=== PATIENT | female | born 1930 | race Caucasian/White ===

== ENCOUNTER 2018-08-25 10:16 | Emergency (ER) | payer MEDICARE, OTHER ==
--- NOTE | 2018-08-25 11:26 | EDM.PDOC ---
ED HPI GENERAL MEDICAL PROBLEM - General Chief Complaint: Head Injury Stated Complaint: FALL-FACIAL INJURIES Time Seen by Provider: 08/25/18 11:08 Source of Information: Reports: Patient History Limitations: Reports: No Limitations - History of Present Illness INITIAL COMMENTS - FREE TEXT/NARRATIVE: 87-year-old female presents the ED complaining of right-sided facial swelling, bruising, and tenderness. Patient was walking on linoleum and tripped causing herself to fall into a into a mallika basket hitting the right side of her face. There was no loss of consciousness. She was able to get up on her own accord. She has chronic neck and back discomfort. Nothing changed since recent fall. She takes aspirin 81 mg daily. No anticoagulants. She chronically has paresthesias to his fingers and toes with no new changes as of recent. Her gait is normal. She denies any shortness of breath, chest pain, vision changes, nausea vomiting, headache, abd pain, pain to extremities, or any additional complaint. - Related Data Allergies Allergy/AdvReac Type Severity Reaction Status Date / Time No Known Allergies Allergy Verified 08/25/18 10:34 Home Meds: Home Meds Ezetimibe 10 mg PO DAILY 08/25/18 [History] Fosinopril [Monopril] 20 mg PO DAILY 08/25/18 [History] Furosemide [Lasix] 20 mg PO DAILY 08/25/18 [History] Levothyroxine 112 mg PO DAILY 08/25/18 [History] Metoprolol Succinate [Toprol Xl] 50 mg PO DAILY 08/25/18 [History] Nystatin [Nystatin Crm] 1 applic TOP BID PRN 08/25/18 [History] Simvastatin 10 mg PO DAILY 08/25/18 [History] amLODIPine [Norvasc] 5 mg PO DAILY 08/25/18 [History] metFORMIN [Glucophage] 500 mg PO BID 08/25/18 [History] Past Medical History Cardiovascular History: Reports: Heart Failure, High Cholesterol, Hypertension 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: Endocrine/Metabolic History: Reports: Hypoparathyroidism - Past Surgical History HEENT Surgical History: Reports: Cataract Surgery Other HEENT Surgeries/Procedures: wears glasses Neurological Surgical History: Reports: Vertebroplasty Musculoskeletal Surgical History: Reports: Knee Replacement Social & Family History - Tobacco Use Smoking Status *Q: Never Smoker Second Hand Smoke Exposure: No - Caffeine Use Caffeine Use: Reports: Coffee, Soda - Recreational Drug Use Recreational Drug Use: No ED ROS GENERAL - Review of Systems Review Of Systems: ROS reveals no pertinent complaints other than HPI. ED EXAM, HEAD INJURY - Physical Exam Exam: See Below Exam Limited By: No Limitations General Appearance: Alert, WD/WN, No Apparent Distress Head: Facial Ecchymosis (Right orbit/cheek), Facial Swelling (Right orbit/cheek) , Sinus Tenderness (Right maxillary), Facial Tenderness (Right orbit/cheek), Raccoon Eyes (Right eye). No: Scalp Lacerations, Scalp Swelling, Scalp Abrasions, Scalp Ecchymosis, Scalp Hematoma, Scalp Tenderness, Active Bleeding, Facial Abrasions, Facial Lacerations Nexus Criteria: No: Posterior, Midline Cervical Tenderness, Evidence of Intoxication, Altered Level of Consciousness, Focal Neurological Deficit, Painful Distraction Injuries Eyes: Bilateral Eye: EOMI, Normal Inspection, Nystagmus (None noted), PERRL Ears: Normal External Exam, Normal Canal, Hearing Grossly Normal, Normal TMs Nose: Normal Inspection, Normal Mucousa, No Blood. No: Nasal Tenderness, Nasal Ecchymosis, Septal Deformity Throat/Mouth: Normal Inspection, Normal Lips, Normal Oropharynx, Normal Voice, No Airway Compromise Neck: Non-Tender, Full Range of Motion, Normal Alignment, Normal Inspection Respiratory: No Respiratory Distress, Lungs Clear, Normal Breath Sounds, No Accessory Muscle Use, Chest Non-Tender Cardiovascular: Normal Peripheral Pulses, Regular Rate, Rhythm, No Murmur GI/Abdominal Exam: Normal Bowel Sounds, Soft, Non-Tender, No Organomegaly, No Distention Back Exam: Normal Inspection, Full Range of Motion. No: Paraspinal Tenderness, Vertebral Tenderness Extremities: Normal Inspection, Normal Range of Motion, Non-Tender Neurologic: thermometer tester II-XII nml As Tested, No Motor/Sensory Deficits, Alert, Normal Mood/Affect, Oriented x 3, Other (No facial droop, slurred speech, tongue deviation. Finger to nose and rapid alternating movements are intact. No weakness discrepancies to the upper and lower extremities. Gait is normal.) Skin: Normal Color, Warm/Dry - [place] Coma Score Best Eye Response (Estuardo): (4) Open Spontaneously Best Verbal Response (Estuardo): (5) Oriented Best Motor Response (Estuardo): (6) Obeys Commands Course - Vital Signs Last Recorded V/S: Last Vital Signs Temp 97.1 F 08/25/18 10:34 Pulse 110 H 08/25/18 10:34 Resp 12 08/25/18 10:34 BP 133/93 H 08/25/18 10:34 Pulse Ox 99 08/25/18 10:34 - Re-Assessments/Exams Free Text/Narrative Re-Assessment/Exam: Will order CT of the head and maxillofacial bones. CT maxillofacial and sinus without contrast impression: Soft tissue swelling around the right orbit extending into the right cheek. No facial bone fractures noted. Head CT impression: Senescent change as described above. Nothing acute is identified on noncontrast head CT exam. Discussed results of CT with the patient. Return precautions discussed with the patient. Patient had no further questions or concerns. Discharge instructions as documented. Departure - Departure Time of Disposition: 12:41 Disposition: Home, Self-Care 01 Condition: Good Clinical Impression: Contusion of face Qualifiers: Encounter type: initial encounter Qualified Code(s): S00.83XA - Contusion of other part of head, initial encounter - Discharge Information Instructions: Facial or Scalp Contusion, Post-Concussion Syndrome, [id number] , Head Injury, Adult, [id number], Hematoma, [id number] Referrals: Ramon Aaron MD [Primary Care Provider] - Forms: ED Department Discharge Additional Instructions: Apply ice to affected area 3 times a day, 20 minutes in duration, do not apply ice directly on the skin. Bruising will resolve over the next couple weeks. May utilize Tylenol as needed for discomfort. I provided information on head injury and also postconcussion syndrome. I do not believe you have either but should be educated if any symptoms do develop that are concerning for this. Please return back to the ED if you develop any new or worsening symptoms.
--- NOTE | 2018-08-25 12:19 | CT ---
Head CT Technique: Multiple axial sections through the brain were obtained. Intravenous contrast was not utilized. Comparison: No previous intracranial imaging is available. Findings: Ventricles along with basal cisterns and sulci over the convexities are mildly prominent. Diminished density is noted within the periventricular and subcortical white matter which is compatible with small vessel ischemic demyelination change. Old lacunar infarcts are noted within the basal ganglia. No other abnormal parenchymal densities are seen. No evidence of intracranial hemorrhage. No midline shift or mass effect is seen. Atherosclerotic calcification is seen within the vertebral vessels as well as within the carotid siphon. Bone window settings were reviewed which shows no acute calvarial abnormality. Impression: 1. Senescent change as described above. 2. Nothing acute is identified on noncontrast head CT exam. Diagnostic code #1
--- NOTE | 2018-08-25 12:19 | CT ---
CT facial bones Technique: Multiple axial sections through the facial bones were obtained. Reconstructed coronal and sagittal images were reviewed. Findings: Paranasal sinuses are clear. No significant mucosal thickening or air-fluid levels are seen. No discrete facial bone fracture is appreciated. Soft tissue swelling is noted around the right orbit. Focal soft tissue swelling is also seen within the right cheek. Right and left globes are symmetric in size. No retrobulbar abnormality is seen. Impression: 1. Soft tissue swelling around the right orbit extending into the right cheek. 2. No facial bone fracture is noted. Diagnostic code #2
== END 2018-08-25 13:05 | disposition home or self-care (01) ==
LOC: JD.ED 10:16
DX: S00.83XA Contusion of other part of head, initial encounter (principal); I11.0 Hypertensive heart disease with heart failure; I50.9 Heart failure, unspecified; E78.00 Pure hypercholesterolemia, unspecified; E20.9 Hypoparathyroidism, unspecified; Z79.899 Other long term (current) drug therapy; W01.0XXA Fall on same level from slipping, tripping and stumbling without subsequent striking against object, initial encounter
CPT/HCPCS: 70450; 70450-26; 70486; 70486-26; 99282; 99283-25

== ENCOUNTER 2018-12-10 07:15 | Inpatient (IN) | payer MEDICARE, OTHER ==
[2018-12-10] MEDS ORDERED: Aspirin 81 MG Tab.Chew PO ONE (07:47)
--- NOTE | 2018-12-10 07:47 | EDM.PDOC ---
ED HPI GENERAL MEDICAL PROBLEM - General Chief Complaint: Chest Pain Stated Complaint: CHEST PAIN Time Seen by Provider: 12/10/18 07:27 - History of Present Illness INITIAL COMMENTS - FREE TEXT/NARRATIVE: 88-year-old female presents emergency room with chest pain early this morning. Patient awoke shortly after midnight with some chest discomfort as well as mostly substernal not associated with breathing difficulties she was not diaphoretic did not radiate to either arm. She did however, have an episode of dry heaves did not bring anything up. This seemed to have resolved however when she got to the emergency room she developed it again Patient has a history of congestive heart failure and uses Lasix if it is convenient for her. If she is busy she does not like to spend all day on the toilet. This discomfort did resolve on its own. She is pain-free at the time of presentation and at the time of my initial evaluation Chest Pain Score (Numeric/FACES): 3 - Related Data Allergies Allergy/AdvReac Type Severity Reaction Status Date / Time No Known Allergies Allergy Verified 12/10/18 07:24 Home Meds: Home Meds Ezetimibe 10 mg PO DAILY 08/25/18 [History] Fosinopril [Monopril] 20 mg PO DAILY 08/25/18 [History] Furosemide [Lasix] 20 mg PO DAILY PRN 08/25/18 [History] Levothyroxine 112 mcg PO DAILY 08/25/18 [History] Metoprolol Succinate [Toprol Xl] 50 mg PO DAILY 08/25/18 [History] Nystatin [Nystatin Crm] 1 applic TOP BID PRN 08/25/18 [History] Simvastatin 10 mg PO BEDTIME 08/25/18 [History] amLODIPine [Norvasc] 5 mg PO DAILY 08/25/18 [History] metFORMIN [Glucophage] 500 mg PO BID 08/25/18 [History] Nystatin [Nystatin Crm] 1 applic TOP ASDIRECTED 12/10/18 [History] Past Medical History Cardiovascular History: Reports: Heart Failure, High Cholesterol, Hypertension 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: Endocrine/Metabolic History: Reports: Hypoparathyroidism - Past Surgical History HEENT Surgical History: Reports: Cataract Surgery Other HEENT Surgeries/Procedures: wears glasses Neurological Surgical History: Reports: Vertebroplasty Musculoskeletal Surgical History: Reports: Knee Replacement Social & Family History - Caffeine Use Caffeine Use: Reports: Coffee, Soda ED ROS GENERAL - Review of Systems Review Of Systems: See Below Constitutional: Reports: No Symptoms HEENT: Reports: No Symptoms Respiratory: Reports: No Symptoms Cardiovascular: Reports: Chest Pain Endocrine: Reports: No Symptoms GI/Abdominal: Reports: No Symptoms : Reports: No Symptoms Musculoskeletal: Reports: No Symptoms Skin: Reports: No Symptoms Neurological: Reports: No Symptoms ED EXAM, GENERAL - Physical Exam Exam: See Below Exam Limited By: No Limitations General Appearance: Alert, No Apparent Distress Head: Atraumatic, Normocephalic Neck: Normal Inspection, Supple, Non-Tender, Full Range of Motion. No: Lymphadenopathy (L), Lymphadenopathy (R) Respiratory/Chest: No Respiratory Distress, Lungs Clear, Normal Breath Sounds GI/Abdominal: Normal Bowel Sounds, Soft, Non-Tender, Other (She is obese) Neurological: Alert, Oriented, Normal Cognition Skin Exam: Warm, Dry, Intact Lymphatic: No Adenopathy EKG INTERPRETATION Rhythm: A-Fib P-Wave: Absent QRS: LBBB ST-T: Other (No evidence of acute ischemia per [place] criteria) Comparison: NA - No Prior EKG (Cannot find a prior EKG however did find a Holter monitor that showed a narrow complex rhythm was dated back to 2005) EKG Interpretation Comments: Abnormal EKG left bundle branch block unknown onset atrial fibrillation appears to be new Course - Vital Signs Last Recorded V/S: Last Vital Signs Temp 36.6 C 12/10/18 07:15 Pulse 104 H 12/10/18 07:15 Resp 16 12/10/18 07:15 BP 142/94 H 12/10/18 07:15 Pulse Ox 94 L 12/10/18 07:15 - Orders/Labs/Meds Orders: Active Orders 24 hr Category Date Time Status EKG Documentation Completion [RC] STAT Care 12/10/18 07:51 Active Labs: Laboratory Tests 12/10/18 12/10/18 12/10/18 Range/Units 07:10 07:40 07:40 WBC 6.73 (3.98-10.04) K/mm3 RBC 4.52 (3.98-5.22) M/mm3 Hgb 13.1 (11.2-15.7) gm/L Hct 40.6 (34.1-44.9) % MCV 89.8 (79.4-94.8) fl MCH 29.0 (25.6-32.2) pg MCHC 32.3 (32.2-35.5) g/dl RDW Std Deviation 43.4 (36.4-46.3) fL Plt Count 109 L (182-369) K/mm3 MPV 11.0 (9.4-12.3) fl Neutrophils % (Manual) 88 H (40-60) % Band Neutrophils % 0 (0-10) % Lymphocytes % (Manual) 11 L (20-40) % Atypical Lymphs % 0 % Monocytes % (Manual) 1 L (2-10) % Eosinophils % (Manual) 0 L (0.7-5.8) % Basophils % (Manual) 0 L (0.1-1.2) Platelet Estimate Decreased Hypochromasia 1+ slight Anisocytosis 2+ moderate Microcytosis 1+ slight Macrocytosis 1+ slight RBC Morph Comment Not Reportable PT 10.3 (9.5-12.1) SECONDS INR 0.94 APTT 24 (24-31) SECONDS Sodium 139 (136-145) mEq/L Potassium 3.8 (3.5-5.1) mEq/L Chloride 101 (98-107) mEq/L Carbon Dioxide 29 (21-32) mEq/L Anion Gap 12.8 (5-15) BUN 17 (7-18) mg/dL Creatinine 0.9 (0.55-1.02) mg/dL Est Cr Clr Drug Dosing 33.52 mL/min Estimated GFR (MDRD) 59 (>60) mL/min BUN/Creatinine Ratio 18.9 H (14-18) Glucose 229 H (83-115) mg/dL Calcium 9.2 (8.5-10.1) mg/dL Total Bilirubin 0.5 (0.2-1.0) mg/dL AST 12 L (15-37) U/L ALT 22 (14-59) U/L Alkaline Phosphatase 65 (46-116) U/L Troponin I < 0.017 (0.00-0.056) ng/mL NT-Pro-B Natriuret Pep (0-450) pg/mL Total Protein 7.4 (6.4-8.2) g/dl Albumin 4.0 (3.4-5.0) g/dl Globulin 3.4 gm/dL Albumin/Globulin Ratio 1.2 (1-2) Urine Color (Yellow) Urine Appearance (Clear) Urine pH (5.0-8.0) Ur Specific [place] (1.005-1.030) Urine Protein (Negative) Urine Glucose (UA) (Negative) Urine Ketones (Negative) Urine Occult Blood (Negative) Urine Nitrite (Negative) Urine Bilirubin (Negative) Urine Urobilinogen (0.2-1.0) Ur Leukocyte Esterase (Negative) Urine RBC (0-5) /hpf Urine WBC (0-5) /hpf Ur Squamous Epith Cells (0-5) /hpf Urine Bacteria (FEW) /hpf Urine Mucus (FEW) /hpf 12/10/18 12/10/18 12/10/18 Range/Units 07:40 09:15 10:15 WBC (3.98-10.04) K/mm3 RBC (3.98-5.22) M/mm3 Hgb (11.2-15.7) gm/L Hct (34.1-44.9) % MCV (79.4-94.8) fl MCH (25.6-32.2) pg MCHC (32.2-35.5) g/dl RDW Std Deviation (36.4-46.3) fL Plt Count (182-369) K/mm3 MPV (9.4-12.3) fl Neutrophils % (Manual) (40-60) % Band Neutrophils % (0-10) % Lymphocytes % (Manual) (20-40) % Atypical Lymphs % % Monocytes % (Manual) (2-10) % Eosinophils % (Manual) (0.7-5.8) % Basophils % (Manual) (0.1-1.2) Platelet Estimate Hypochromasia Anisocytosis Microcytosis Macrocytosis RBC Morph Comment PT (9.5-12.1) SECONDS INR APTT (24-31) SECONDS Sodium (136-145) mEq/L Potassium (3.5-5.1) mEq/L Chloride (98-107) mEq/L Carbon Dioxide (21-32) mEq/L Anion Gap (5-15) BUN (7-18) mg/dL Creatinine (0.55-1.02) mg/dL Est Cr Clr Drug Dosing mL/min Estimated GFR (MDRD) (>60) mL/min BUN/Creatinine Ratio (14-18) Glucose (83-115) mg/dL Calcium (8.5-10.1) mg/dL Total Bilirubin (0.2-1.0) mg/dL AST (15-37) U/L ALT (14-59) U/L Alkaline Phosphatase (46-116) U/L Troponin I < 0.017 (0.00-0.056) ng/mL NT-Pro-B Natriuret Pep 1260 H (0-450) pg/mL Total Protein (6.4-8.2) g/dl Albumin (3.4-5.0) g/dl Globulin gm/dL Albumin/Globulin Ratio (1-2) Urine Color Yellow (Yellow) Urine Appearance Clear (Clear) Urine pH 6.5 (5.0-8.0) Ur Specific [place] 1.025 (1.005-1.030) Urine Protein 1+ H (Negative) Urine Glucose (UA) Negative (Negative) Urine Ketones Negative (Negative) Urine Occult Blood Trace-lysed H (Negative) Urine Nitrite Negative (Negative) Urine Bilirubin Negative (Negative) Urine Urobilinogen 0.2 (0.2-1.0) Ur Leukocyte Esterase Negative (Negative) Urine RBC 0-5 (0-5) /hpf Urine WBC 0-5 (0-5) /hpf Ur Squamous Epith Cells 10-20 H (0-5) /hpf Urine Bacteria Few (FEW) /hpf Urine Mucus Few (FEW) /hpf Meds: Medications Discontinued Medications Generic Name Dose Route Start Last Admin Trade Name Freq PRN Reason Stop Dose Admin Aspirin 324 mg 12/10/18 07:47 12/10/18 09:47 Aspirin PO 12/10/18 07:48 324 mg ONETIME ONE Administration Metoclopramide HCl 5 mg 12/10/18 08:59 12/10/18 09:02 Reglan IVPUSH 12/10/18 09:00 5 mg ONETIME ONE Administration Ondansetron HCl 4 mg 12/10/18 08:20 12/10/18 08:31 Zofran IVPUSH 12/10/18 08:21 4 mg ONETIME ONE Administration - Re-Assessments/Exams Free Text/Narrative Re-Assessment/Exam: 12/10/18 09:17 Laboratory evaluation nondiagnostic chest x-ray shows some cardiomegaly she has some mild vascular congestion on chest x-ray EKG shows atrial fibrillation with a left bundle branch block when this lump bundle branch block is started is unknown they don't have an EKG over at [place] on her she did have a Holter monitor that shows a narrow complex rhythm dating back to 2007. For her dry heaves here she received some Zofran this did not seem to help we just gave her 5 mg of Reglan. Departure - Departure Time of Disposition: 11:28 Disposition: Refer to Observation Clinical Impression: Chest pain, Atrial fibrillation, Heart failure, Nausea & vomiting Referrals: Ramon Aaron MD [Primary Care Provider] - Forms: ED Department Discharge - My Orders Last 24 Hours: My Active Orders 12/10/18 07:51 EKG Documentation Completion [RC] STAT - Assessment/Plan Last 24 Hours: My Active Orders 12/10/18 07:51 EKG Documentation Completion [RC] STAT
[2018-12-10] MEDS ORDERED: Ondansetron 4 MG/2 ML SDV IVPUSH ONE (08:20)
[2018-12-10] MEDS ORDERED: Metoclopramide 10 MG/2 ML SDV IVPUSH ONE (08:59)
--- NOTE | 2018-12-10 09:38 | CR ---
Chest: Portable view of the chest was obtained. Comparison: No prior chest x-ray. Heart size and mediastinum are normal. Lungs are clear. Bony structures are grossly intact. Impression: 1. Nothing acute is appreciated on portable chest x-ray. Diagnostic code #1
[2018-12-10] MEDS ORDERED: Acetaminophen 325 MG Tab PO PRN (14:45)
--- NOTE | 2018-12-10 14:51 | PCM.HP ---
H&P History of Present Illness - General Date of Service: 12/10/18 Admit Problem/Dx: Admission Diagnosis/Problem Admission Diagnosis/Problem Atrial fibrillation - History of Present Illness Initial Comments - Free Text/Narative: 88-year-old female with history of congestive heart failure, hypertension, hypothyroidism, and type 2 diabetes presents to the emergency room with epigastric pain since midnight. Patient woke up at midnight nauseated, had dry heaves, and then epigastric pain. When she woke up at 6:00 in the morning she continued to have the pain that worsened with breathing. She did come to the emergency room at that time where she did have an emesis of mucus around 9:00. Last night she did have deep fried chicken for dinner. She States the pain is 3 of 10, burning. She denies any dyspnea on exertion, orthopnea, PND, or worsening lower extremity edema. She does state that she likely has sleep apnea and patient was placed on O2 in the emergency room because of dropping oxygen saturations when sleeping. In the emergency room EKG showed atrial fibrillation and a left bundle branch block. Unknown when either of these started. She is on a beta laura keeping her rate controlled. Chest x-ray showed no acute findings. Labs: WBC 6.7, hemoglobin 13.1, platelets 109, INR 0.94, sodium 139, potassium 3.8, chloride 101, carbon dioxide 29, BUN 17, creatinine 0.9, glucose 229, BNP 1260 and a repeat was 1945, troponin less than 0.017 and repeat was the same. Negative UA for infection Chest Pain Score (Numeric/FACES): 3 - Related Data Allergies/Adverse Reactions: Allergies Allergy/AdvReac Type Severity Reaction Status Date / Time No Known Allergies Allergy Verified 12/10/18 14:15 Home Medications: Home Meds Ezetimibe 10 mg PO DAILY 08/25/18 [History] Fosinopril [Monopril] 20 mg PO DAILY 08/25/18 [History] Furosemide [Lasix] 20 mg PO DAILY PRN 08/25/18 [History] Levothyroxine 112 mcg PO DAILY 08/25/18 [History] Metoprolol Succinate [Toprol Xl] 50 mg PO DAILY 08/25/18 [History] Nystatin [Nystatin Crm] 1 applic TOP BID PRN 08/25/18 [History] Simvastatin 10 mg PO BEDTIME 08/25/18 [History] amLODIPine [Norvasc] 5 mg PO DAILY 08/25/18 [History] metFORMIN [Glucophage] 500 mg PO BID 08/25/18 [History] Past Medical History Cardiovascular History: Reports: Heart Failure, High Cholesterol, Hypertension Respiratory History: Reports: Asthma, Other (See Below) Other Respiratory History: was told has asthma but has not been Rx'd meds for asthma. 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 - Infectious Disease History Infectious Disease History: Reports: Shingles - Past Surgical History HEENT Surgical History: Reports: Cataract Surgery Other HEENT Surgeries/Procedures: wears glasses GI Surgical History: Reports: Colonoscopy Neurological Surgical History: Reports: Vertebroplasty Musculoskeletal Surgical History: Reports: Knee Replacement Social & Family History - Family History Family Medical History: Noncontributory - Tobacco Use Smoking Status *Q: Never Smoker Second Hand Smoke Exposure: No - Caffeine Use Caffeine Use: Reports: Coffee Other Caffeine Use: 1 cup/day - Recreational Drug Use Recreational Drug Use: No H&P Review of Systems - Review of Systems: Review Of Systems: ROS reveals no pertinent complaints other than HPI. Exam - Exam Exam: See Below - Vital Signs Vital Signs: Last Vital Signs Temp 98.4 F 12/10/18 13:09 Pulse 89 12/10/18 13:09 Resp 16 12/10/18 13:09 BP 157/98 H 12/10/18 13:09 Pulse Ox 95 12/10/18 13:09 Weight: 205 lb 8 oz - Exam Quality Assessment: Supplemental Oxygen General: Alert, Oriented, 4 HEENT: Conjunctiva Clear, EOMI, Hearing Intact, Mucosa Moist & [place], Nares Patent, Posterior Pharynx Clear Neck: Supple, Trachea Midline, 2 Lungs: Clear to Auscultation, Normal Respiratory Effort Cardiovascular: Regular Rate, Irregular Rhythm GI/Abdominal Exam: Normal Bowel Sounds, Soft, Non-Tender, No Organomegaly, No Distention, No Abnormal Bruit, No Mass, Pelvis Stable Extremities: Normal Inspection, Normal Range of Motion, Non-Tender, Normal Capillary Refill, Pedal Edema (2+ lower extremity pitting edema up to her knee) Skin: Warm, Dry, Intact Neurological: Cranial Nerves Intact, Reflexes Equal Bilateral Neuro Extensive - Mental Status: Alert, Oriented x3, Normal Mood/Affect, Normal Cognition Neuro Extensive - Motor, Sensory, Reflexes: CN II-XII Intact Psychiatric: Alert, Normal Affect, Normal Mood - Patient Data Lab Results Last 24 hrs: Laboratory Results - last 24 hr 12/10/18 12/10/18 12/10/18 Range/Units 07:10 07:40 07:40 WBC 6.73 (3.98-10.04) K/mm3 RBC 4.52 (3.98-5.22) M/mm3 Hgb 13.1 (11.2-15.7) gm/L Hct 40.6 (34.1-44.9) % MCV 89.8 (79.4-94.8) fl MCH 29.0 (25.6-32.2) pg MCHC 32.3 (32.2-35.5) g/dl RDW Std Deviation 43.4 (36.4-46.3) fL Plt Count 109 L (182-369) K/mm3 MPV 11.0 (9.4-12.3) fl Neutrophils % (Manual) 88 H (40-60) % Band Neutrophils % 0 (0-10) % Lymphocytes % (Manual) 11 L (20-40) % Atypical Lymphs % 0 % Monocytes % (Manual) 1 L (2-10) % Eosinophils % (Manual) 0 L (0.7-5.8) % Basophils % (Manual) 0 L (0.1-1.2) Platelet Estimate Decreased Hypochromasia 1+ slight Anisocytosis 2+ moderate Microcytosis 1+ slight Macrocytosis 1+ slight RBC Morph Comment Not Reportable PT 10.3 (9.5-12.1) SECONDS INR 0.94 APTT 24 (24-31) SECONDS Sodium 139 (136-145) mEq/L Potassium 3.8 (3.5-5.1) mEq/L Chloride 101 (98-107) mEq/L Carbon Dioxide 29 (21-32) mEq/L Anion Gap 12.8 (5-15) BUN 17 (7-18) mg/dL Creatinine 0.9 (0.55-1.02) mg/dL Est Cr Clr Drug Dosing 33.52 mL/min Estimated GFR (MDRD) 59 (>60) mL/min BUN/Creatinine Ratio 18.9 H (14-18) Glucose 229 H (83-115) mg/dL Calcium 9.2 (8.5-10.1) mg/dL Total Bilirubin 0.5 (0.2-1.0) mg/dL AST 12 L (15-37) U/L ALT 22 (14-59) U/L Alkaline Phosphatase 65 (46-116) U/L Troponin I < 0.017 (0.00-0.056) ng/mL NT-Pro-B Natriuret Pep (0-450) pg/mL Total Protein 7.4 (6.4-8.2) g/dl Albumin 4.0 (3.4-5.0) g/dl Globulin 3.4 gm/dL Albumin/Globulin Ratio 1.2 (1-2) Urine Color (Yellow) Urine Appearance (Clear) Urine pH (5.0-8.0) Ur Specific [place] (1.005-1.030) Urine Protein (Negative) Urine Glucose (UA) (Negative) Urine Ketones (Negative) Urine Occult Blood (Negative) Urine Nitrite (Negative) Urine Bilirubin (Negative) Urine Urobilinogen (0.2-1.0) Ur Leukocyte Esterase (Negative) Urine RBC (0-5) /hpf Urine WBC (0-5) /hpf Ur Squamous Epith Cells (0-5) /hpf Urine Bacteria (FEW) /hpf Urine Mucus (FEW) /hpf 12/10/18 12/10/18 12/10/18 Range/Units 07:40 09:15 10:15 WBC (3.98-10.04) K/mm3 RBC (3.98-5.22) M/mm3 Hgb (11.2-15.7) gm/L Hct (34.1-44.9) % MCV (79.4-94.8) fl MCH (25.6-32.2) pg MCHC (32.2-35.5) g/dl RDW Std Deviation (36.4-46.3) fL Plt Count (182-369) K/mm3 MPV (9.4-12.3) fl Neutrophils % (Manual) (40-60) % Band Neutrophils % (0-10) % Lymphocytes % (Manual) (20-40) % Atypical Lymphs % % Monocytes % (Manual) (2-10) % Eosinophils % (Manual) (0.7-5.8) % Basophils % (Manual) (0.1-1.2) Platelet Estimate Hypochromasia Anisocytosis Microcytosis Macrocytosis RBC Morph Comment PT (9.5-12.1) SECONDS INR APTT (24-31) SECONDS Sodium (136-145) mEq/L Potassium (3.5-5.1) mEq/L Chloride (98-107) mEq/L Carbon Dioxide (21-32) mEq/L Anion Gap (5-15) BUN (7-18) mg/dL Creatinine (0.55-1.02) mg/dL Est Cr Clr Drug Dosing mL/min Estimated GFR (MDRD) (>60) mL/min BUN/Creatinine Ratio (14-18) Glucose (83-115) mg/dL Calcium (8.5-10.1) mg/dL Total Bilirubin (0.2-1.0) mg/dL AST (15-37) U/L ALT (14-59) U/L Alkaline Phosphatase (46-116) U/L Troponin I < 0.017 (0.00-0.056) ng/mL NT-Pro-B Natriuret Pep 1260 H (0-450) pg/mL Total Protein (6.4-8.2) g/dl Albumin (3.4-5.0) g/dl Globulin gm/dL Albumin/Globulin Ratio (1-2) Urine Color Yellow (Yellow) Urine Appearance Clear (Clear) Urine pH 6.5 (5.0-8.0) Ur Specific [place] 1.025 (1.005-1.030) Urine Protein 1+ H (Negative) Urine Glucose (UA) Negative (Negative) Urine Ketones Negative (Negative) Urine Occult Blood Trace-lysed H (Negative) Urine Nitrite Negative (Negative) Urine Bilirubin Negative (Negative) Urine Urobilinogen 0.2 (0.2-1.0) Ur Leukocyte Esterase Negative (Negative) Urine RBC 0-5 (0-5) /hpf Urine WBC 0-5 (0-5) /hpf Ur Squamous Epith Cells 10-20 H (0-5) /hpf Urine Bacteria Few (FEW) /hpf Urine Mucus Few (FEW) /hpf Result Diagrams: 12/10/18 07:10 12/10/18 07:40 EKG INTERPRETATION EKG Date: 12/10/18 Rhythm: A-Fib Rate (Beats/Min): 93 [place]: LAD-Left [place] Deviation P-Wave: Absent QRS: LBBB - Problem List (1) Epigastric abdominal pain SNOMED Code(s): 87501076 ICD Code: R10.13 - EPIGASTRIC PAIN Status: Acute Current Visit: Yes (2) Atrial fibrillation SNOMED Code(s): 49052826 ICD Code: I48.91 - UNSPECIFIED ATRIAL FIBRILLATION Status: Acute Current Visit: Yes (3) Nausea & vomiting SNOMED Code(s): 26524983 ICD Code: R11.2 - NAUSEA WITH VOMITING, UNSPECIFIED Status: Acute Current Visit: Yes Problem List Initiated/Reviewed/Updated: Yes Orders Last 24hrs: Active Orders 24 hr Category Date Time Status Patient Status [ADT] Routine ADT 12/10/18 14:39 Active Oxygen Therapy [RC] PRN Care 12/10/18 14:45 Ordered Up ad Sharon [RC] ASDIRECTED Care 12/10/18 14:45 Ordered VTE/DVT Education [RC] PER UNIT ROUTINE Care 12/10/18 14:45 Ordered Vital Signs [RC] ASDIRECTED Care 12/10/18 14:45 Ordered Consult to Pulmonary Rehabilitation [CONS] Routine Cons 12/10/18 14:48 Ordered Heart Healthy Diet [DIET] Diet 12/10/18 Lunch Active Nothing Per Oral Diet [DIET] Diet 12/10/18 Breakfast Ordered CBC WITH AUTO DIFF [HEME] AM Lab 12/11/18 05:11 Ordered CBC WITH AUTO DIFF [HEME] AM Lab 12/12/18 05:11 Ordered CBC WITH AUTO DIFF [HEME] AM Lab 12/13/18 05:11 Ordered CBC WITH AUTO DIFF [HEME] AM Lab 12/14/18 05:11 Ordered CBC WITH AUTO DIFF [HEME] AM Lab 12/15/18 05:11 Ordered COMPREHENSIVE METABOLIC PN,CMP [CHEM] AM Lab 12/11/18 05:11 Ordered COMPREHENSIVE METABOLIC PN,CMP [CHEM] AM Lab 12/12/18 05:11 Ordered COMPREHENSIVE METABOLIC PN,CMP [CHEM] AM Lab 12/13/18 05:11 Ordered COMPREHENSIVE METABOLIC PN,CMP [CHEM] AM Lab 12/14/18 05:11 Ordered COMPREHENSIVE METABOLIC PN,CMP [CHEM] AM Lab 12/15/18 05:11 Ordered MAGNESIUM [CHEM] AM Lab 12/11/18 05:11 Ordered MAGNESIUM [CHEM] AM Lab 12/12/18 05:11 Ordered MAGNESIUM [CHEM] AM Lab 12/13/18 05:11 Ordered MAGNESIUM [CHEM] AM Lab 12/14/18 05:11 Ordered MAGNESIUM [CHEM] AM Lab 12/15/18 05:11 Ordered PRO B-TYPE NATRIUR PEPT,BNPPRO [CHEM] DAILY Lab 12/10/18 14:45 Ordered PRO B-TYPE NATRIUR PEPT,BNPPRO [CHEM] DAILY Lab 12/11/18 14:45 Ordered PRO B-TYPE NATRIUR PEPT,BNPPRO [CHEM] DAILY Lab 12/12/18 14:45 Ordered PRO B-TYPE NATRIUR PEPT,BNPPRO [CHEM] DAILY Lab 12/13/18 14:45 Ordered PRO B-TYPE NATRIUR PEPT,BNPPRO [CHEM] DAILY Lab 12/14/18 14:45 Ordered Acetaminophen [Tylenol] Med 12/10/18 14:45 Ordered 650 mg PO Q4H PRN Resuscitation Status Routine Resus Stat 12/10/18 14:45 Ordered EKG Stress NM Adenosine [EK] Routine Ther 12/10/18 14:45 Ordered Medication Orders Acetaminophen (Tylenol) 650 mg PO Q4H PRN PRN Reason: Pain (Mild 1-3)/fever Assessment/Plan Comment:: Assessment * 88-year-old female with type 2 diabetes with new onset atrial fibrillation. Rate controlled on metoprolol * congestive heart failure * Nausea and vomiting * Epigastric pain * negative troponins Plan * Admit to telemetry * Lexiscan - hold metoprolol for Lexiscan * Echocardiogram * [id number] score = 6, high risk for thromboembolic event. Yearly risk of stroke = 9.8% * Bleeding Risk in Atrial Fibrillation: HAS-BLED Score = 2, intermediate risk of bleeding. Estimated Rate of Major Bleeding with 1-year OAC = 1.88-3.2 * Lasix 20 mg IV now and Lasix 20 mg by mouth in the morning * Protonix 40 mg twice a day * Eliquis 2.5 mg bid secondary to age and bleeding risk. May consider increasing to 5 mg. * reconcile home meds * CBC, CMP, mag, and BNP in the morning * Prognosis is poor * VTE prophylaxis with Eliquis * CODE STATUS: DNR/DNI
[2018-12-10] MEDS ORDERED: Alum Hydrox/Mag Hydrox/Simeth 30 ML, Lidocaine 2% 15 ML PO ONE ×2 (16:42)
[2018-12-10] MEDS ORDERED: Furosemide 20 MG/2 ML VIAL IVPUSH ONE (16:56)
[2018-12-10] MEDS: Pantoprazole 40 MG Tab.CR PO SCH (17:44)
[2018-12-10] MEDS: Insulin Lispro 100 Units/ML 3 ML Vial SUBCUT SCH ×2 (18:10→21:08)
[2018-12-10] MEDS: Simvastatin 10 MG Tab PO SCH (20:02)
[2018-12-11] MEDS: Levothyroxine 112 MCG Tab PO SCH (06:08)
[2018-12-11] MEDS: Pantoprazole 40 MG Tab.CR PO SCH ×2 (06:08→15:22)
[2018-12-11] MEDS: Insulin Lispro 100 Units/ML 3 ML Vial SUBCUT SCH ×4 (06:15→21:29)
[2018-12-11] MEDS ORDERED: Furosemide 20 MG Tab PO SCH (09:00)
--- NOTE | 2018-12-11 09:45 | PCM.PN ---
- General Info Date of Service: 12/11/18 Admission Dx/Problem (Free Text): Admission Diagnosis/Problem Admission Diagnosis/Problem Atrial fibrillation Subjective Update: No significant overnight or acute issues. She is now chest pain free. Her troponin was negative with no acute ischemic changes on her repeat EKG. Her nuclear stress test is pending. Functional Status: Reports: Ambulating, Urinating. Denies: Pain Controlled, Tolerating Diet - Review of Systems General: Denies: Fever, Chills HEENT: Denies: No Symptoms Pulmonary: Denies: Shortness of Breath Cardiovascular: Denies: Chest Pain, Dyspnea on Exertion, Lightheadedness Gastrointestinal: Denies: Abdominal Pain, Nausea, Vomiting Genitourinary: Reports: No Symptoms Musculoskeletal: Reports: No Symptoms Skin: Denies: Cyanosis, Bruising Neurological: Reports: Difficulty Walking, Gait Disturbance. Denies: Confusion , Dizziness, Weakness Psychiatric: Denies: Depression, Anxiety, Agitation, Hallucinations - Patient Data Vitals - Most Recent: Last Vital Signs Temp 37.9 C 12/11/18 09:08 Pulse 119 H 12/11/18 09:08 Resp 20 12/11/18 09:08 BP 160/93 H 12/11/18 09:08 Pulse Ox 86 L 12/11/18 09:08 Weight - Most Recent: 90.582 kg I&O - Last 24 Hours: Intake & Output 12/10/18 12/11/18 12/11/18 22:59 06:59 14:59 Intake Total 720 500 Output Total 1350 Balance 720 -850 Lab Results Last 24 Hours: Laboratory Results - last 24 hr 12/10/18 12/10/18 12/10/18 Range/Units 09:15 10:15 15:20 WBC (3.98-10.04) K/mm3 RBC (3.98-5.22) M/mm3 Hgb (11.2-15.7) gm/L Hct (34.1-44.9) % MCV (79.4-94.8) fl MCH (25.6-32.2) pg MCHC (32.2-35.5) g/dl RDW Std Deviation (36.4-46.3) fL Plt Count (182-369) K/mm3 MPV (9.4-12.3) fl Neut % (Auto) (34.0-71.1) % Lymph % (Auto) (19.3-51.7) % [place] % (Auto) (4.7-12.5) % Eos % (Auto) (0.7-5.8) Baso % (Auto) (0.1-1.2) % Neut # (Auto) (1.56-6.13) K/mm3 Lymph # (Auto) (1.18-3.74) K/mm3 [place] # (Auto) (0.24-0.36) K/mm3 Eos # (Auto) (0.04-0.36) K/mm3 Baso # (Auto) (0.01-0.08) K/mm3 Manual Slide Review Sodium (136-145) mEq/L Potassium (3.5-5.1) mEq/L Chloride (98-107) mEq/L Carbon Dioxide (21-32) mEq/L Anion Gap (5-15) BUN (7-18) mg/dL Creatinine (0.55-1.02) mg/dL Est Cr Clr Drug Dosing mL/min Estimated GFR (MDRD) (>60) mL/min BUN/Creatinine Ratio (14-18) Glucose (83-115) mg/dL POC Glucose (83-110) mg/dL Calcium (8.5-10.1) mg/dL Magnesium (1.8-2.4) mg/dl Total Bilirubin (0.2-1.0) mg/dL AST (15-37) U/L ALT (14-59) U/L Alkaline Phosphatase (46-116) U/L Troponin I < 0.017 (0.00-0.056) ng/mL NT-Pro-B Natriuret Pep 1945 H (0-450) pg/mL Total Protein (6.4-8.2) g/dl Albumin (3.4-5.0) g/dl Globulin gm/dL Albumin/Globulin Ratio (1-2) Triglycerides (<150) mg/dL Cholesterol (<200) mg/dL LDL Cholesterol Direct (<100) mg/dL HDL Cholesterol (40-59) mg/dL TSH 3rd Generation (0.358-3.74) uIU/mL Urine Color Yellow (Yellow) Urine Appearance Clear (Clear) Urine pH 6.5 (5.0-8.0) Ur Specific [place] 1.025 (1.005-1.030) Urine Protein 1+ H (Negative) Urine Glucose (UA) Negative (Negative) Urine Ketones Negative (Negative) Urine Occult Blood Trace-lysed H (Negative) Urine Nitrite Negative (Negative) Urine Bilirubin Negative (Negative) Urine Urobilinogen 0.2 (0.2-1.0) Ur Leukocyte Esterase Negative (Negative) Urine RBC 0-5 (0-5) /hpf Urine WBC 0-5 (0-5) /hpf Ur Squamous Epith Cells 10-20 H (0-5) /hpf Urine Bacteria Few (FEW) /hpf Urine Mucus Few (FEW) /hpf 12/10/18 12/10/18 12/11/18 Range/Units 17:42 20:48 05:10 WBC 9.86 (3.98-10.04) K/mm3 RBC 4.54 (3.98-5.22) M/mm3 Hgb 13.1 (11.2-15.7) gm/L Hct 40.4 (34.1-44.9) % MCV 89.0 (79.4-94.8) fl MCH 28.9 (25.6-32.2) pg MCHC 32.4 (32.2-35.5) g/dl RDW Std Deviation 42.0 (36.4-46.3) fL Plt Count 107 L (182-369) K/mm3 MPV 11.3 (9.4-12.3) fl Neut % (Auto) 84.7 H (34.0-71.1) % Lymph % (Auto) 6.7 L (19.3-51.7) % [place] % (Auto) 7.9 (4.7-12.5) % Eos % (Auto) 0.3 L (0.7-5.8) Baso % (Auto) 0.1 (0.1-1.2) % Neut # (Auto) 8.35 H (1.56-6.13) K/mm3 Lymph # (Auto) 0.66 L (1.18-3.74) K/mm3 [place] # (Auto) 0.78 H (0.24-0.36) K/mm3 Eos # (Auto) 0.03 L (0.04-0.36) K/mm3 Baso # (Auto) 0.01 (0.01-0.08) K/mm3 Manual Slide Review Abnormal smear Sodium (136-145) mEq/L Potassium (3.5-5.1) mEq/L Chloride (98-107) mEq/L Carbon Dioxide (21-32) mEq/L Anion Gap (5-15) BUN (7-18) mg/dL Creatinine (0.55-1.02) mg/dL Est Cr Clr Drug Dosing mL/min Estimated GFR (MDRD) (>60) mL/min BUN/Creatinine Ratio (14-18) Glucose (83-115) mg/dL POC Glucose 192 H 196 H (83-110) mg/dL Calcium (8.5-10.1) mg/dL Magnesium (1.8-2.4) mg/dl Total Bilirubin (0.2-1.0) mg/dL AST (15-37) U/L ALT (14-59) U/L Alkaline Phosphatase (46-116) U/L Troponin I (0.00-0.056) ng/mL NT-Pro-B Natriuret Pep (0-450) pg/mL Total Protein (6.4-8.2) g/dl Albumin (3.4-5.0) g/dl Globulin gm/dL Albumin/Globulin Ratio (1-2) Triglycerides (<150) mg/dL Cholesterol (<200) mg/dL LDL Cholesterol Direct (<100) mg/dL HDL Cholesterol (40-59) mg/dL TSH 3rd Generation (0.358-3.74) uIU/mL Urine Color (Yellow) Urine Appearance (Clear) Urine pH (5.0-8.0) Ur Specific [place] (1.005-1.030) Urine Protein (Negative) Urine Glucose (UA) (Negative) Urine Ketones (Negative) Urine Occult Blood (Negative) Urine Nitrite (Negative) Urine Bilirubin (Negative) Urine Urobilinogen (0.2-1.0) Ur Leukocyte Esterase (Negative) Urine RBC (0-5) /hpf Urine WBC (0-5) /hpf Ur Squamous Epith Cells (0-5) /hpf Urine Bacteria (FEW) /hpf Urine Mucus (FEW) /hpf 12/11/18 12/11/18 Range/Units 05:10 06:07 WBC (3.98-10.04) K/mm3 RBC (3.98-5.22) M/mm3 Hgb (11.2-15.7) gm/L Hct (34.1-44.9) % MCV (79.4-94.8) fl MCH (25.6-32.2) pg MCHC (32.2-35.5) g/dl RDW Std Deviation (36.4-46.3) fL Plt Count (182-369) K/mm3 MPV (9.4-12.3) fl Neut % (Auto) (34.0-71.1) % Lymph % (Auto) (19.3-51.7) % [place] % (Auto) (4.7-12.5) % Eos % (Auto) (0.7-5.8) Baso % (Auto) (0.1-1.2) % Neut # (Auto) (1.56-6.13) K/mm3 Lymph # (Auto) (1.18-3.74) K/mm3 [place] # (Auto) (0.24-0.36) K/mm3 Eos # (Auto) (0.04-0.36) K/mm3 Baso # (Auto) (0.01-0.08) K/mm3 Manual Slide Review Sodium 134 L (136-145) mEq/L Potassium 3.5 (3.5-5.1) mEq/L Chloride 95 L (98-107) mEq/L Carbon Dioxide 29 (21-32) mEq/L Anion Gap 13.5 (5-15) BUN 11 (7-18) mg/dL Creatinine 0.8 (0.55-1.02) mg/dL Est Cr Clr Drug Dosing 37.71 mL/min Estimated GFR (MDRD) > 60 (>60) mL/min BUN/Creatinine Ratio 13.8 L (14-18) Glucose 216 H (83-115) mg/dL POC Glucose 203 H (83-110) mg/dL Calcium 9.1 (8.5-10.1) mg/dL Magnesium 1.6 L (1.8-2.4) mg/dl Total Bilirubin 1.0 (0.2-1.0) mg/dL AST 15 (15-37) U/L ALT 19 (14-59) U/L Alkaline Phosphatase 59 (46-116) U/L Troponin I < 0.017 (0.00-0.056) ng/mL NT-Pro-B Natriuret Pep (0-450) pg/mL Total Protein 7.7 (6.4-8.2) g/dl Albumin 3.7 (3.4-5.0) g/dl Globulin 4.0 gm/dL Albumin/Globulin Ratio 0.9 L (1-2) Triglycerides 68 (<150) mg/dL Cholesterol 109 (<200) mg/dL LDL Cholesterol Direct 53 (<100) mg/dL HDL Cholesterol 47.0 (40-59) mg/dL TSH 3rd Generation 1.001 (0.358-3.74) uIU/mL Urine Color (Yellow) Urine Appearance (Clear) Urine pH (5.0-8.0) Ur Specific [place] (1.005-1.030) Urine Protein (Negative) Urine Glucose (UA) (Negative) Urine Ketones (Negative) Urine Occult Blood (Negative) Urine Nitrite (Negative) Urine Bilirubin (Negative) Urine Urobilinogen (0.2-1.0) Ur Leukocyte Esterase (Negative) Urine RBC (0-5) /hpf Urine WBC (0-5) /hpf Ur Squamous Epith Cells (0-5) /hpf Urine Bacteria (FEW) /hpf Urine Mucus (FEW) /hpf Med Orders - Current: Current Medications Acetaminophen (Tylenol) 650 mg PO Q4H PRN PRN Reason: Pain (Mild 1-3)/fever Amlodipine Besylate (Norvasc) 5 mg PO DAILY [facility] Apixaban (Eliquis) 2.5 mg PO BID [facility] Ezetimibe (Zetia) 10 mg PO DAILY [facility] Furosemide (Lasix) 20 mg PO DAILY [facility] Insulin Human Lispro (Humalog) 0 unit SUBCUT QIDACANDBED [facility]; Protocol Last Admin: 12/11/18 06:15 Dose: 2 unit Levothyroxine Sodium (Levothyroxine) 112 mcg PO ACBREAKFAST [facility] Last Admin: 12/11/18 06:08 Dose: 112 mcg Lisinopril (Prinivil) 10 mg PO DAILY [facility] Metoprolol Succinate (Toprol Xl) 50 mg PO DAILY [facility] Pantoprazole Sodium (Protonix) 40 mg PO BIDAC [facility] Last Admin: 12/11/18 06:08 Dose: 40 mg Simvastatin (Zocor) 10 mg PO BEDTIME [facility] Last Admin: 12/10/18 20:02 Dose: 10 mg Discontinued Medications Aspirin (Aspirin) 324 mg PO ONETIME ONE Stop: 12/10/18 07:48 Last Admin: 12/10/18 09:47 Dose: 324 mg Al Hydroxide/Mg Hydroxide 30 (ml/ Lidocaine HCl 15 ml) 0 ml PO ONETIME ONE Stop: 12/10/18 16:43 Last Admin: 12/10/18 17:43 Dose: 45 ml Furosemide (Lasix) 20 mg IVPUSH ONETIME ONE Stop: 12/10/18 16:57 Last Admin: 12/10/18 17:45 Dose: 20 mg Metoclopramide HCl (Reglan) 5 mg IVPUSH ONETIME ONE Stop: 12/10/18 09:00 Last Admin: 12/10/18 09:02 Dose: 5 mg Ondansetron HCl (Zofran) 4 mg IVPUSH ONETIME ONE Stop: 12/10/18 08:21 Last Admin: 12/10/18 08:31 Dose: 4 mg Regadenoson (Lexiscan) 0.4 mg IVPUSH ONETIME ONE Stop: 12/11/18 06:56 Last Admin: 12/11/18 07:44 Dose: 0.4 mg - Exam Quality Assessment: Supplemental Oxygen General: Alert, Cooperative, No Acute Distress HEENT: Pupils Equal, Pupils Reactive, EOMI, Mucous Membr. Moist/[place]: Supple Lungs: Decreased Breath Sounds, Crackles Cardiovascular: Irregular Rhythm GI/Abdominal Exam: Normal Bowel Sounds, Soft, Non-Tender, No Organomegaly, No Distention, No Abnormal Bruit, No Mass, Other (obese) (Female) Exam: Deferred Back Exam: Normal Inspection, Decreased Range of Motion Extremities: Normal Inspection, Normal Range of Motion, Non-Tender, No Pedal Edema, Normal Capillary Refill Peripheral Pulses: 2+: Posterior Tibial (L), Posterior Tibial (R), Dorsalis Pedis (L), Dorsalis Pedis (R) Skin: Warm, Dry, Intact Neurological: No New Focal Deficit. No: Normal Gait Psy/Mental Status: Alert, Normal Affect, Normal Mood EKG INTERPRETATION EKG Date: 12/11/18 Time: 14:47 Rhythm: A-Fib Rate (Beats/Min): 109 QRS: LBBB Comparison: NA - No Prior EKG - Problem List Review Problem List Initiated/Reviewed/Updated: Yes - Plan Plan:: Assessment: 88-year-old female with type 2 diabetes with new onset atrial fibrillation * Chest Pain r/o ACS- negative serial troponin; EKG shows no acute ischemic changes; lipid panel- wnl; Nuclear stress test pending * Congestive heart failure- mild exacerbation; BNP 1260--> 4316; on Lasix 20 mg po daily and Monopril 20mg po daily * Atrial Fibrillation- new onset; HR is fairly controlled; Metoprolol Succinate at 50 mg po daily; NEDRA VAsc Score of 6 with a HAS BLED Score of 3; she is currently on Eliquis 2.5 mg po BID for stroke prophylaxis * Mild Thrombocytopenia- platelet of 109 and 107; no active bleeding or melenic stools; will monitor * Diabetes Mellitus 2 - BS not well controlled; no A1C done; she takes Metformin 500 mg po BID only; change ISS to high dose; resume metformin in AM and will start Glucotrol 5 mg po x1 tonight and 2.5 mg po BID in AM; if renal function worsens, we will adjust if not stop Glucotrol * S/p Nausea and vomiting * S/p Epigastric pain Plan * She is doing clinically better * Echocardiogram- completed awaiting * [id number] score = 6, high risk for thromboembolic event. Yearly risk of stroke = 9.8% * Lasix 20 mg mouth daily * Daily CBC, CMP, mag, and BNP in the morning * Stroke/VTE prophylaxis with Eliquis * CODE STATUS: DNR/DNI * Possible discharge in 1-2 days
[2018-12-11] MEDS: amLODIPine 5 MG Tab PO SCH (12:43)
[2018-12-11] MEDS: Apixaban 2.5 MG Tab PO SCH ×2 (12:44→21:22)
[2018-12-11] MEDS: Ezetimibe 10 MG Tab PO SCH (12:44)
[2018-12-11] MEDS: Metoprolol Succinate 50 MG Tab.ER PO SCH (12:44)
[2018-12-11] MEDS: Lisinopril 10 MG Tab PO SCH (12:44)
--- NOTE | 2018-12-11 13:38 | NM ---
Cardiolite cardiac exam Technique: I have data stating the patient was stressed utilizing Lexiscan protocol. Stress dose of technetium 99m Cardiolite was 11.8 mCi. Rest dose is 30.6 mCi. SPECT imaging was obtained in 3 planes for both portions of the study. Study could not be gated. Low-dose chest CT performed to allow for attenuation correction. Comparison: No prior cardiac imaging. Activity within the left ventricular myocardium is diminished within a portion of the apex and adjacent septum. This appears fixed between rest and stress study and is felt compatible with previous infarct. Activity is otherwise homogeneous without reversible type change. Impression: 1. Findings suspicious for previous infarct within the apex and adjacent septum. 2. Nothing is seen to indicate reversible ischemia. 3. Study could not be gated due to irregular heart rate. Diagnostic code #2
[2018-12-11] MEDS ORDERED: Magnesium Sulfate/Water 2 GM in Premix Bag 1 BAG IV ONE (14:19)
--- NOTE | 2018-12-11 15:39 | PCM.PRNOTE ---
- Free Text/Narrative Note: Date of service: 12/11/18 Procedure: Regadenoson (Lexiscan) stress test Ordering provider: Dr. Vi Flores Indication: New onset A-fib Baseline EKG: A-fib at 109 bpm with LBBB. The patient received Regadenoson (Lexiscan) 0.4 mg IV and a nuclear agent using standard protocol. The patient was seated for the procedure. Lexiscan test: Heart rate: 152 bpm; Blood pressure: 146/83 mm Hg; Oxygenation: 97%. EKG changes of ischemia during stress test or in recovery: None Arrhythmias: None Adverse effects of Lexiscan: Nausea and dry heaving both spontaneously and rapidly resolving prior to completion of test. Test terminated due to: End of protocol Impression: 1. Indeterminant Lexiscan stress test ECG for ischemia. Non-diagnostic per Lexiscan protocol and LBBB. No definitive signs of ischemia seen. 2. Nuclear images pending and will be reported separately per Radiologist.
[2018-12-11] MEDS ORDERED: glipiZIDE 5 MG Tab.ER PO SCH (21:00)
[2018-12-11] MEDS ORDERED: Hydrochlorothiazide 12.5 MG Cap PO SCH (21:00)
[2018-12-11] MEDS: Simvastatin 10 MG Tab PO SCH (21:22)
[2018-12-12] MEDS: Levothyroxine 112 MCG Tab PO SCH (06:55)
[2018-12-12] MEDS: Metoprolol Succinate 50 MG Tab.ER PO SCH ×2 (06:56→09:35)
[2018-12-12] MEDS: Pantoprazole 40 MG Tab.CR PO SCH ×2 (06:58→16:36)
[2018-12-12] MEDS: Hydrochlorothiazide 12.5 MG Cap PO SCH ×2 (06:58→14:17)
[2018-12-12] MEDS ORDERED: glipiZIDE 2.5 MG Tab.ER PO SCH (07:00)
[2018-12-12] MEDS ORDERED: metFORMIN 500 MG Tab PO SCH (07:00)
[2018-12-12] MEDS: Furosemide 40 MG Tab PO SCH (09:32)
[2018-12-12] MEDS: Insulin Lispro 100 Units/ML 3 ML Vial SUBCUT SCH ×4 (09:32→22:04)
[2018-12-12] MEDS: Lisinopril 10 MG Tab PO SCH (09:33)
[2018-12-12] MEDS: Apixaban 2.5 MG Tab PO SCH ×2 (09:35→21:56)
[2018-12-12] MEDS: amLODIPine 5 MG Tab PO SCH (09:35)
[2018-12-12] MEDS: Ezetimibe 10 MG Tab PO SCH (09:35)
--- NOTE | 2018-12-12 09:57 | PCM.PN ---
- General Info Date of Service: 12/12/18 Admission Dx/Problem (Free Text): Admission Diagnosis/Problem Admission Diagnosis/Problem Atrial fibrillation Subjective Update: No significant overnight or acute issues. She did not sleep well last night but she report no acute complaints. She is afebrile but her WBC shot up to 18K. Patient reports not having a bowel movement since Monday. She has been eating, drinking and ambulating w/o much difficulties. Overall she states, she feels like she is getting better. Functional Status: Reports: Pain Controlled, Tolerating Diet, Ambulating, Urinating. Denies: New Symptoms - Review of Systems General: Denies: Fever, Weakness, Fatigue, Malaise, Chills HEENT: Reports: No Symptoms Pulmonary: Denies: Shortness of Breath, Cough, Sputum Cardiovascular: Denies: Chest Pain, Palpitations, Dyspnea on Exertion, Edema, Lightheadedness Gastrointestinal: Reports: Constipation. Denies: Abdominal Pain, Decreased Appetite, Difficulty Swallowing, Nausea, Vomiting Genitourinary: Denies: No Symptoms Musculoskeletal: Denies: No Symptoms Skin: Denies: Cyanosis, Bruising Neurological: Reports: Gait Disturbance. Denies: Confusion, Weakness Psychiatric: Denies: Depression, Anxiety, Agitation, Hallucinations - Patient Data Vitals - Most Recent: Last Vital Signs Temp 37.6 C 12/12/18 07:44 Pulse 104 H 12/12/18 08:45 Resp 20 12/12/18 07:44 BP 146/75 H 12/12/18 09:35 Pulse Ox 92 L 12/12/18 07:44 Weight - Most Recent: 88.677 kg I&O - Last 24 Hours: Intake & Output 12/11/18 12/12/18 12/12/18 22:59 06:59 14:59 Intake Total 580 150 Output Total 550 600 Balance 30 -450 Lab Results Last 24 Hours: Laboratory Results - last 24 hr 12/11/18 12/11/18 12/11/18 Range/Units 12:29 14:50 17:19 WBC (3.98-10.04) K/mm3 RBC (3.98-5.22) M/mm3 Hgb (11.2-15.7) gm/L Hct (34.1-44.9) % MCV (79.4-94.8) fl MCH (25.6-32.2) pg MCHC (32.2-35.5) g/dl RDW Std Deviation (36.4-46.3) fL Plt Count (182-369) K/mm3 MPV (9.4-12.3) fl Neut % (Auto) (34.0-71.1) % Lymph % (Auto) (19.3-51.7) % [place] % (Auto) (4.7-12.5) % Eos % (Auto) (0.7-5.8) Baso % (Auto) (0.1-1.2) % Neut # (Auto) (1.56-6.13) K/mm3 Lymph # (Auto) (1.18-3.74) K/mm3 [place] # (Auto) (0.24-0.36) K/mm3 Eos # (Auto) (0.04-0.36) K/mm3 Baso # (Auto) (0.01-0.08) K/mm3 Manual Slide Review Sodium (136-145) mEq/L Potassium (3.5-5.1) mEq/L Chloride (98-107) mEq/L Carbon Dioxide (21-32) mEq/L Anion Gap (5-15) BUN (7-18) mg/dL Creatinine (0.55-1.02) mg/dL Est Cr Clr Drug Dosing mL/min Estimated GFR (MDRD) (>60) mL/min BUN/Creatinine Ratio (14-18) Glucose (83-115) mg/dL POC Glucose 224 H 234 H (83-110) mg/dL Calcium (8.5-10.1) mg/dL Magnesium (1.8-2.4) mg/dl Total Bilirubin (0.2-1.0) mg/dL AST (15-37) U/L ALT (14-59) U/L Alkaline Phosphatase (46-116) U/L NT-Pro-B Natriuret Pep 4316 H (0-450) pg/mL Total Protein (6.4-8.2) g/dl Albumin (3.4-5.0) g/dl Globulin gm/dL Albumin/Globulin Ratio (1-2) 12/11/18 12/12/18 12/12/18 Range/Units 21:19 06:51 06:55 WBC 18.49 H (3.98-10.04) K/mm3 RBC 4.75 (3.98-5.22) M/mm3 Hgb 13.9 (11.2-15.7) gm/L Hct 42.4 (34.1-44.9) % MCV 89.3 (79.4-94.8) fl MCH 29.3 (25.6-32.2) pg MCHC 32.8 (32.2-35.5) g/dl RDW Std Deviation 43.4 (36.4-46.3) fL Plt Count 113 L (182-369) K/mm3 MPV 11.5 (9.4-12.3) fl Neut % (Auto) 86.9 H (34.0-71.1) % Lymph % (Auto) 3.7 L (19.3-51.7) % [place] % (Auto) 8.4 (4.7-12.5) % Eos % (Auto) 0.1 L (0.7-5.8) Baso % (Auto) 0.1 (0.1-1.2) % Neut # (Auto) 16.08 H (1.56-6.13) K/mm3 Lymph # (Auto) 0.69 L (1.18-3.74) K/mm3 [place] # (Auto) 1.55 H (0.24-0.36) K/mm3 Eos # (Auto) 0.01 L (0.04-0.36) K/mm3 Baso # (Auto) 0.01 (0.01-0.08) K/mm3 Manual Slide Review Abnormal smear Sodium (136-145) mEq/L Potassium (3.5-5.1) mEq/L Chloride (98-107) mEq/L Carbon Dioxide (21-32) mEq/L Anion Gap (5-15) BUN (7-18) mg/dL Creatinine (0.55-1.02) mg/dL Est Cr Clr Drug Dosing mL/min Estimated GFR (MDRD) (>60) mL/min BUN/Creatinine Ratio (14-18) Glucose (83-115) mg/dL POC Glucose 252 H 162 H (83-110) mg/dL Calcium (8.5-10.1) mg/dL Magnesium (1.8-2.4) mg/dl Total Bilirubin (0.2-1.0) mg/dL AST (15-37) U/L ALT (14-59) U/L Alkaline Phosphatase (46-116) U/L NT-Pro-B Natriuret Pep (0-450) pg/mL Total Protein (6.4-8.2) g/dl Albumin (3.4-5.0) g/dl Globulin gm/dL Albumin/Globulin Ratio (1-2) 12/12/18 12/12/18 Range/Units 06:55 06:55 WBC (3.98-10.04) K/mm3 RBC (3.98-5.22) M/mm3 Hgb (11.2-15.7) gm/L Hct (34.1-44.9) % MCV (79.4-94.8) fl MCH (25.6-32.2) pg MCHC (32.2-35.5) g/dl RDW Std Deviation (36.4-46.3) fL Plt Count (182-369) K/mm3 MPV (9.4-12.3) fl Neut % (Auto) (34.0-71.1) % Lymph % (Auto) (19.3-51.7) % [place] % (Auto) (4.7-12.5) % Eos % (Auto) (0.7-5.8) Baso % (Auto) (0.1-1.2) % Neut # (Auto) (1.56-6.13) K/mm3 Lymph # (Auto) (1.18-3.74) K/mm3 [place] # (Auto) (0.24-0.36) K/mm3 Eos # (Auto) (0.04-0.36) K/mm3 Baso # (Auto) (0.01-0.08) K/mm3 Manual Slide Review Sodium 134 L (136-145) mEq/L Potassium 3.4 L (3.5-5.1) mEq/L Chloride 95 L (98-107) mEq/L Carbon Dioxide 32 (21-32) mEq/L Anion Gap 10.4 (5-15) BUN 19 H (7-18) mg/dL Creatinine 1.1 H (0.55-1.02) mg/dL Est Cr Clr Drug Dosing 27.42 mL/min Estimated GFR (MDRD) 47 (>60) mL/min BUN/Creatinine Ratio 17.3 (14-18) Glucose 184 H (83-115) mg/dL POC Glucose (83-110) mg/dL Calcium 9.5 (8.5-10.1) mg/dL Magnesium 2.1 (1.8-2.4) mg/dl Total Bilirubin 1.7 H (0.2-1.0) mg/dL AST 8 L (15-37) U/L ALT 15 (14-59) U/L Alkaline Phosphatase 61 (46-116) U/L NT-Pro-B Natriuret Pep 5381 H (0-450) pg/mL Total Protein 7.5 (6.4-8.2) g/dl Albumin 3.2 L (3.4-5.0) g/dl Globulin 4.3 gm/dL Albumin/Globulin Ratio 0.7 L (1-2) Med Orders - Current: Current Medications Acetaminophen (Tylenol) 650 mg PO Q4H PRN PRN Reason: Pain (Mild 1-3)/fever Amlodipine Besylate (Norvasc) 5 mg PO DAILY [facility] Last Admin: 12/12/18 09:35 Dose: 5 mg Apixaban (Eliquis) 2.5 mg PO BID [facility] Last Admin: 12/12/18 09:35 Dose: 2.5 mg Ezetimibe (Zetia) 10 mg PO DAILY [facility] Last Admin: 12/12/18 09:35 Dose: 10 mg Furosemide (Lasix) 40 mg PO DAILY [facility] Last Admin: 12/12/18 09:32 Dose: 40 mg Glipizide (Glucotrol Xl) 2.5 mg PO BIDMEALS [facility] Last Admin: 12/12/18 06:55 Dose: 2.5 mg Hydrochlorothiazide (Hydrochlorothiazide) 12.5 mg PO BIDDIURETIC [facility] Last Admin: 12/12/18 06:58 Dose: 12.5 mg Insulin Human Lispro (Humalog) 0 unit SUBCUT QIDACANDBED [facility]; Protocol Last Admin: 12/12/18 09:32 Dose: 3 unit Levothyroxine Sodium (Levothyroxine) 112 mcg PO ACBREAKFAST [facility] Last Admin: 12/12/18 06:55 Dose: 112 mcg Lisinopril (Prinivil) 10 mg PO DAILY [facility] Last Admin: 12/12/18 09:33 Dose: 10 mg Metformin HCl (Glucophage) 500 mg PO BIDMEALS [facility] Last Admin: 12/12/18 06:55 Dose: 500 mg Metoprolol Succinate (Toprol Xl) 50 mg PO DAILY [facility] Last Admin: 12/12/18 09:35 Dose: Not Given Pantoprazole Sodium (Protonix) 40 mg PO BIDAC [facility] Last Admin: 12/12/18 06:58 Dose: 40 mg Simvastatin (Zocor) 10 mg PO BEDTIME [facility] Last Admin: 12/11/18 21:22 Dose: 10 mg Discontinued Medications Aspirin (Aspirin) 324 mg PO ONETIME ONE Stop: 12/10/18 07:48 Last Admin: 12/10/18 09:47 Dose: 324 mg Al Hydroxide/Mg Hydroxide 30 (ml/ Lidocaine HCl 15 ml) 0 ml PO ONETIME ONE Stop: 12/10/18 16:43 Last Admin: 12/10/18 17:43 Dose: 45 ml Furosemide (Lasix) 20 mg IVPUSH ONETIME ONE Stop: 12/10/18 16:57 Last Admin: 12/10/18 17:45 Dose: 20 mg Furosemide (Lasix) 20 mg PO DAILY [facility] Last Admin: 12/11/18 12:43 Dose: 20 mg Glipizide (Glucotrol Xl) 5 mg PO DAILY [facility] Stop: 12/11/18 21:01 Last Admin: 12/11/18 21:21 Dose: 5 mg Hydrochlorothiazide (Hydrochlorothiazide) 12.5 mg PO BEDTIME [facility] Stop: 12/11/18 21:01 Last Admin: 12/11/18 21:21 Dose: 12.5 mg Magnesium Sulfate 2 gm/ Premix 50 mls @ 25 mls/hr IV ONETIME ONE Stop: 12/11/18 16:18 Last Admin: 12/11/18 15:23 Dose: 25 mls/hr Magnesium Sulfate (Pharmacy To Dose - Magnesium Replacement) 1 dose .XX ASDIRECTED [facility] Metoclopramide HCl (Reglan) 5 mg IVPUSH ONETIME ONE Stop: 12/10/18 09:00 Last Admin: 12/10/18 09:02 Dose: 5 mg Ondansetron HCl (Zofran) 4 mg IVPUSH ONETIME ONE Stop: 12/10/18 08:21 Last Admin: 12/10/18 08:31 Dose: 4 mg Potassium Chloride (Pharmacy To Dose - Potassium Replacement) 1 dose .XX ASDIRECTED [facility]UD[facility] Regadenoson (Lexiscan) 0.4 mg IVPUSH ONETIME ONE Stop: 12/11/18 06:56 Last Admin: 12/11/18 07:44 Dose: 0.4 mg - Exam Quality Assessment: Supplemental Oxygen General: Alert, Oriented, Cooperative, No Acute Distress HEENT: Pupils Equal, Pupils Reactive, EOMI, Mucous Membr. Moist/[place] Neck: Supple Lungs: Normal Respiratory Effort, Crackles Cardiovascular: Irregular Rhythm GI/Abdominal Exam: Normal Bowel Sounds, Soft, Non-Tender, No Organomegaly, No Distention, No Abnormal Bruit, No Mass (Female) Exam: Deferred Back Exam: Normal Inspection, Decreased Range of Motion Extremities: Normal Inspection, Normal Range of Motion, Non-Tender, No Pedal Edema, Normal Capillary Refill Skin: Warm, Dry, Intact Neurological: No New Focal Deficit. No: Normal Gait Psy/Mental Status: Alert, Normal Affect, Normal Mood - Problem List Review Problem List Initiated/Reviewed/Updated: Yes - My Orders Last 24 Hours: My Active Orders 12/11/18 14:17 PT Evaluation and Treatment [CONS] Routine 12/11/18 14:18 OT Evaluation and Treatment [CONS] Routine 12/11/18 14:38 EKG 12 Lead [EK] Routine 12/12/18 06:00 hydroCHLOROthiazide 12.5 mg PO BIDDIURETIC 12/12/18 07:00 glipiZIDE [Glucotrol XL] 2.5 mg PO BIDMEALS metFORMIN [Glucophage] 500 mg PO BIDMEALS 12/12/18 09:00 Furosemide [Lasix] 40 mg PO DAILY 12/12/18 09:05 Chest 1V Frontal [CR] Routine 12/12/18 12:00 CBC WITH AUTO DIFF [HEME] Routine CRP [C-REACTIVE PROTEIN] [CHEM] Routine - Plan Plan:: Assessment: 88-year-old female with type 2 diabetes with new onset atrial fibrillation * S/p Chest Pain r/o ACS- negative serial troponin; EKG shows no acute ischemic changes; lipid panel-wnl; Nuclear stress test report read as suspicious for previous infarct within the apex and adjacent septum, nothing is seen to indicate reversible ischemia * Congestive Heart Failure- mild exacerbation; BNP 1260--> 4316; on Lasix 40 mg po daily and Monopril 20mg po daily; 2D echo shows EF of 65-70%, No RWMA, Moderate MVR, Right Ventricular Systolic Pressure is Moderately elevated at 50.5 mmHg (Pulmonary HTN) * Atrial Fibrillation- new onset; HR is fairly controlled; Metoprolol Succinate at 50 mg po daily; NEDRA VAsc Score of 6 with a HAS BLED Score of 3; she is currently on Eliquis 2.5 mg po BID for stroke prophylaxis * Mild Thrombocytopenia- platelet of 109 and 107; now 113; no active bleeding or melenic stools; will monitor * Diabetes Mellitus 2 - BS now well controlled; A1C is 7.30; she takes Metformin 500 mg po BID only; change ISS to high dose; hold metformin and ACEI AM and Continue Glucotrol 5 mg po BID * Constipation - has not had a bowel movement since Monday; Lactulose TID and Bisacodyl BID * Leukocytosis - WBC of 118--> repeat level is 120K; CRP if 34; Repeat CXR shows no acute abnormal findings; will repeat UA and check for skin lesions * Acute Kidney Injury - 2/2 diuretics use; ACEI and Metformin have been held; HCTZ adjusted; start IV fluid to prevent further kidney injury * S/p Nausea and vomiting * S/p Epigastric pain Plan: * She is essentially the same * Echocardiogram- 2D echo shows EF of 65-70%, No RWMA, Moderate MVR, Right Ventricular Systolic Pressure is Moderately elevated at 50.5 mmHg (Pulmonary HTN ) * [id number] score = 6, high risk for thromboembolic event. Yearly risk of stroke = 9.8% * We will start maintenance fluid for renal perfusion; informed family she will develop diarrhea with the bowel prep and may affect her renal function. However we will adjust medications and if necessary we will stop or hold nephrotoxic agents * Daily CBC, CMP, mag, and BNP in the morning * Stroke/VTE prophylaxis with Eliquis * CODE STATUS: DNR/DNI * LOS anticipate > 96 hrs
--- NOTE | 2018-12-12 10:02 | CR ---
Chest: Portable view of the chest was obtained. Comparison: Prior chest x-ray of 12/10/18. Heart size is within normal limits for portable technique. Tortuous thoracic aorta is noted. Lungs are clear. No acute parenchymal change. Nodular density is noted within the left midlung adjacent to the hilum believed to represent vascular confluence. Bony structures are grossly intact. Impression: 1. Findings believed to be incidental. Nothing acute is appreciated on portable chest x-ray. Diagnostic code #2
[2018-12-12] MEDS ORDERED: Potassium Chloride 20 MEQ Tab.ER PO ONE (12:30)
[2018-12-12 12:59] LABS: HEMOGLOBIN A1C 7.3 % (4.50-6.20)
[2018-12-12] MEDS ORDERED: Bisacodyl 10 MG Supp RECTAL PRN (13:39)
[2018-12-12] MEDS: Lactulose Soln 10 GM/15 ML 30 ML UD Cup PO SCH ×2 (14:17→21:58)
[2018-12-12] MEDS ORDERED: Sodium Chloride 0.9% 1,000 ML IV SCH ×2 (14:30→20:45)
[2018-12-12] MEDS: glipiZIDE 2.5 MG Tab.ER PO SCH (16:36)
[2018-12-12] MEDS ORDERED: Metoprolol Tartrate 5 MG/5 ML SDV IVPUSH PRN (18:58)
[2018-12-12] MEDS: Metoprolol Succinate 25 MG Tab.ER PO SCH ×2 (20:17→21:56)
[2018-12-12] MEDS ORDERED: Sodium Chloride 0.9% 250 ML IV ONE (20:40)
[2018-12-12] MEDS: Amoxicillin 500 MG Cap PO SCH (21:55)
[2018-12-12] MEDS: Simvastatin 10 MG Tab PO SCH (21:56)
[2018-12-13] MEDS: Hydrochlorothiazide 12.5 MG Cap PO SCH (06:33)
[2018-12-13] MEDS: Pantoprazole 40 MG Tab.CR PO SCH ×2 (06:33→17:58)
[2018-12-13] MEDS: Amoxicillin 500 MG Cap PO SCH ×3 (06:33→21:37)
[2018-12-13] MEDS: Levothyroxine 112 MCG Tab PO SCH (06:33)
[2018-12-13] MEDS: glipiZIDE 2.5 MG Tab.ER PO SCH (06:33)
[2018-12-13] MEDS: Insulin Lispro 100 Units/ML 3 ML Vial SUBCUT SCH ×4 (06:59→21:54)
--- NOTE | 2018-12-13 07:43 | PCM.PN ---
- General Info Date of Service: 12/13/18 Admission Dx/Problem (Free Text): Admission Diagnosis/Problem Admission Diagnosis/Problem Atrial fibrillation Subjective Update: No overnight issues but her glucose bottomed out this morning as low as 62. She was asymptomatic however. She had 4-5 bowel movements since she received lactulose and bisacodyl bowel prep. She has no complaints this AM. Her WBC improved to 15K but CRP gone up to 43 from 34 yesterday. She remains afebrile. Her renal panel slightly improved and she still making good urine. Functional Status: Reports: Pain Controlled, Tolerating Diet, Ambulating, Urinating. Denies: New Symptoms - Review of Systems General: Denies: Fever, Weakness, Fatigue, Malaise, Chills HEENT: Reports: No Symptoms Pulmonary: Denies: Shortness of Breath, Cough Cardiovascular: Denies: Chest Pain, Dyspnea on Exertion, Lightheadedness Gastrointestinal: Reports: Diarrhea. Denies: Abdominal Pain, Decreased Appetite , Nausea, Vomiting Genitourinary: Reports: No Symptoms Musculoskeletal: Reports: No Symptoms Skin: Denies: Cyanosis, Diaphoresis, Bruising, Pruritis Neurological: Reports: Gait Disturbance. Denies: Confusion, Weakness Psychiatric: Denies: Depression, Mood Lability, Agitation, Hallucinations - Patient Data Vitals - Most Recent: Last Vital Signs Temp 37.4 C 12/13/18 04:50 Pulse 121 H 12/13/18 04:24 Resp 18 12/13/18 04:24 BP 122/82 12/13/18 04:24 Pulse Ox 94 L 12/13/18 04:24 Weight - Most Recent: 90.265 kg I&O - Last 24 Hours: Intake & Output 12/12/18 12/13/18 12/13/18 22:59 06:59 14:59 Intake Total 1076 1320 Output Total 350 500 Balance 726 820 Lab Results Last 24 Hours: Laboratory Results - last 24 hr 12/12/18 12/12/18 12/12/18 Range/Units 06:55 06:55 11:55 WBC 20.03 H (3.98-10.04) K/mm3 RBC 4.70 (3.98-5.22) M/mm3 Hgb 13.8 (11.2-15.7) gm/L Hct 42.1 (34.1-44.9) % MCV 89.6 (79.4-94.8) fl MCH 29.4 (25.6-32.2) pg MCHC 32.8 (32.2-35.5) g/dl RDW Std Deviation 44.1 (36.4-46.3) fL Plt Count 109 L (182-369) K/mm3 MPV 11.4 (9.4-12.3) fl Neut % (Auto) 86.4 H (34.0-71.1) % Lymph % (Auto) 3.8 L (19.3-51.7) % [place] % (Auto) 8.7 (4.7-12.5) % Eos % (Auto) 0 L (0.7-5.8) Baso % (Auto) 0.0 L (0.1-1.2) % Neut # (Auto) 17.29 H (1.56-6.13) K/mm3 Lymph # (Auto) 0.76 L (1.18-3.74) K/mm3 [place] # (Auto) 1.75 H (0.24-0.36) K/mm3 Eos # (Auto) 0.00 L (0.04-0.36) K/mm3 Baso # (Auto) 0.01 (0.01-0.08) K/mm3 Manual Slide Review Abnormal smear Sodium 134 L (136-145) mEq/L Potassium 3.4 L (3.5-5.1) mEq/L Chloride 95 L (98-107) mEq/L Carbon Dioxide 32 (21-32) mEq/L Anion Gap 10.4 (5-15) BUN 19 H (7-18) mg/dL Creatinine 1.1 H (0.55-1.02) mg/dL Est Cr Clr Drug Dosing 27.42 mL/min Estimated GFR (MDRD) 47 (>60) mL/min BUN/Creatinine Ratio 17.3 (14-18) Glucose 184 H (83-115) mg/dL POC Glucose (83-110) mg/dL Hemoglobin A1c (4.50-6.20) % Calcium 9.5 (8.5-10.1) mg/dL Magnesium 2.1 (1.8-2.4) mg/dl Total Bilirubin 1.7 H (0.2-1.0) mg/dL AST 8 L (15-37) U/L ALT 15 (14-59) U/L Alkaline Phosphatase 61 (46-116) U/L C-Reactive Protein (<1.0) mg/dL NT-Pro-B Natriuret Pep 5381 H (0-450) pg/mL Total Protein 7.5 (6.4-8.2) g/dl Albumin 3.2 L (3.4-5.0) g/dl Globulin 4.3 gm/dL Albumin/Globulin Ratio 0.7 L (1-2) Urine Color (Yellow) Urine Appearance (Clear) Urine pH (5.0-8.0) Ur Specific [place] (1.005-1.030) Urine Protein (Negative) Urine Glucose (UA) (Negative) Urine Ketones (Negative) Urine Occult Blood (Negative) Urine Nitrite (Negative) Urine Bilirubin (Negative) Urine Urobilinogen (0.2-1.0) Ur Leukocyte Esterase (Negative) Urine RBC (0-5) /hpf Urine WBC (0-5) /hpf Ur Epithelial Cells (0-5) /hpf Urine Bacteria (FEW) /hpf Urine Mucus (FEW) /hpf 12/12/18 12/12/18 12/12/18 Range/Units 11:55 11:55 13:44 WBC (3.98-10.04) K/mm3 RBC (3.98-5.22) M/mm3 Hgb (11.2-15.7) gm/L Hct (34.1-44.9) % MCV (79.4-94.8) fl MCH (25.6-32.2) pg MCHC (32.2-35.5) g/dl RDW Std Deviation (36.4-46.3) fL Plt Count (182-369) K/mm3 MPV (9.4-12.3) fl Neut % (Auto) (34.0-71.1) % Lymph % (Auto) (19.3-51.7) % [place] % (Auto) (4.7-12.5) % Eos % (Auto) (0.7-5.8) Baso % (Auto) (0.1-1.2) % Neut # (Auto) (1.56-6.13) K/mm3 Lymph # (Auto) (1.18-3.74) K/mm3 [place] # (Auto) (0.24-0.36) K/mm3 Eos # (Auto) (0.04-0.36) K/mm3 Baso # (Auto) (0.01-0.08) K/mm3 Manual Slide Review Sodium (136-145) mEq/L Potassium (3.5-5.1) mEq/L Chloride (98-107) mEq/L Carbon Dioxide (21-32) mEq/L Anion Gap (5-15) BUN (7-18) mg/dL Creatinine (0.55-1.02) mg/dL Est Cr Clr Drug Dosing mL/min Estimated GFR (MDRD) (>60) mL/min BUN/Creatinine Ratio (14-18) Glucose (83-115) mg/dL POC Glucose (83-110) mg/dL Hemoglobin A1c 7.30 H (4.50-6.20) % Calcium (8.5-10.1) mg/dL Magnesium (1.8-2.4) mg/dl Total Bilirubin (0.2-1.0) mg/dL AST (15-37) U/L ALT (14-59) U/L Alkaline Phosphatase (46-116) U/L C-Reactive Protein 34.1 H* (<1.0) mg/dL NT-Pro-B Natriuret Pep (0-450) pg/mL Total Protein (6.4-8.2) g/dl Albumin (3.4-5.0) g/dl Globulin gm/dL Albumin/Globulin Ratio (1-2) Urine Color Yellow (Yellow) Urine Appearance Clear (Clear) Urine pH 5.5 (5.0-8.0) Ur Specific [place] 1.025 (1.005-1.030) Urine Protein 2+ H (Negative) Urine Glucose (UA) Negative (Negative) Urine Ketones Negative (Negative) Urine Occult Blood 2+ H (Negative) Urine Nitrite Negative (Negative) Urine Bilirubin Negative (Negative) Urine Urobilinogen 0.2 (0.2-1.0) Ur Leukocyte Esterase 1+ H (Negative) Urine RBC 0-5 (0-5) /hpf Urine WBC 5-10 H (0-5) /hpf Ur Epithelial Cells 0-5 (0-5) /hpf Urine Bacteria Few (FEW) /hpf Urine Mucus Few (FEW) /hpf 12/12/18 12/12/18 12/12/18 Range/Units 16:35 18:30 21:50 WBC (3.98-10.04) K/mm3 RBC (3.98-5.22) M/mm3 Hgb (11.2-15.7) gm/L Hct (34.1-44.9) % MCV (79.4-94.8) fl MCH (25.6-32.2) pg MCHC (32.2-35.5) g/dl RDW Std Deviation (36.4-46.3) fL Plt Count (182-369) K/mm3 MPV (9.4-12.3) fl Neut % (Auto) (34.0-71.1) % Lymph % (Auto) (19.3-51.7) % [place] % (Auto) (4.7-12.5) % Eos % (Auto) (0.7-5.8) Baso % (Auto) (0.1-1.2) % Neut # (Auto) (1.56-6.13) K/mm3 Lymph # (Auto) (1.18-3.74) K/mm3 [place] # (Auto) (0.24-0.36) K/mm3 Eos # (Auto) (0.04-0.36) K/mm3 Baso # (Auto) (0.01-0.08) K/mm3 Manual Slide Review Sodium 131 L (136-145) mEq/L Potassium 3.5 (3.5-5.1) mEq/L Chloride 93 L (98-107) mEq/L Carbon Dioxide 28 (21-32) mEq/L Anion Gap 13.5 (5-15) BUN 30 H (7-18) mg/dL Creatinine 1.4 H (0.55-1.02) mg/dL Est Cr Clr Drug Dosing 21.55 mL/min Estimated GFR (MDRD) 35 (>60) mL/min BUN/Creatinine Ratio 21.4 H (14-18) Glucose 211 H (83-115) mg/dL POC Glucose 149 H 125 H (83-110) mg/dL Hemoglobin A1c (4.50-6.20) % Calcium 8.7 (8.5-10.1) mg/dL Magnesium (1.8-2.4) mg/dl Total Bilirubin (0.2-1.0) mg/dL AST (15-37) U/L ALT (14-59) U/L Alkaline Phosphatase (46-116) U/L C-Reactive Protein (<1.0) mg/dL NT-Pro-B Natriuret Pep (0-450) pg/mL Total Protein (6.4-8.2) g/dl Albumin (3.4-5.0) g/dl Globulin gm/dL Albumin/Globulin Ratio (1-2) Urine Color (Yellow) Urine Appearance (Clear) Urine pH (5.0-8.0) Ur Specific [place] (1.005-1.030) Urine Protein (Negative) Urine Glucose (UA) (Negative) Urine Ketones (Negative) Urine Occult Blood (Negative) Urine Nitrite (Negative) Urine Bilirubin (Negative) Urine Urobilinogen (0.2-1.0) Ur Leukocyte Esterase (Negative) Urine RBC (0-5) /hpf Urine WBC (0-5) /hpf Ur Epithelial Cells (0-5) /hpf Urine Bacteria (FEW) /hpf Urine Mucus (FEW) /hpf 12/13/18 12/13/18 12/13/18 Range/Units 05:29 05:29 05:29 WBC 15.11 H (3.98-10.04) K/mm3 RBC 4.37 (3.98-5.22) M/mm3 Hgb 12.6 (11.2-15.7) gm/L Hct 39.6 (34.1-44.9) % MCV 90.6 (79.4-94.8) fl MCH 28.8 (25.6-32.2) pg MCHC 31.8 L (32.2-35.5) g/dl RDW Std Deviation 44.4 (36.4-46.3) fL Plt Count 108 L (182-369) K/mm3 MPV 11.3 (9.4-12.3) fl Neut % (Auto) 85.5 H (34.0-71.1) % Lymph % (Auto) 4.8 L (19.3-51.7) % [place] % (Auto) 9.1 (4.7-12.5) % Eos % (Auto) 0.1 L (0.7-5.8) Baso % (Auto) 0.0 L (0.1-1.2) % Neut # (Auto) 12.94 H (1.56-6.13) K/mm3 Lymph # (Auto) 0.72 L (1.18-3.74) K/mm3 [place] # (Auto) 1.37 H (0.24-0.36) K/mm3 Eos # (Auto) 0.01 L (0.04-0.36) K/mm3 Baso # (Auto) 0.00 L (0.01-0.08) K/mm3 Manual Slide Review Abnormal smear Sodium 136 (136-145) mEq/L Potassium 3.1 L (3.5-5.1) mEq/L Chloride 96 L (98-107) mEq/L Carbon Dioxide 29 (21-32) mEq/L Anion Gap 14.1 (5-15) BUN 35 H (7-18) mg/dL Creatinine 1.3 H (0.55-1.02) mg/dL Est Cr Clr Drug Dosing 23.20 mL/min Estimated GFR (MDRD) 39 (>60) mL/min BUN/Creatinine Ratio 26.9 H (14-18) Glucose 73 L (83-115) mg/dL POC Glucose (83-110) mg/dL Hemoglobin A1c (4.50-6.20) % Calcium 8.5 (8.5-10.1) mg/dL Magnesium 2.0 (1.8-2.4) mg/dl Total Bilirubin (0.2-1.0) mg/dL AST (15-37) U/L ALT (14-59) U/L Alkaline Phosphatase (46-116) U/L C-Reactive Protein (<1.0) mg/dL NT-Pro-B Natriuret Pep (0-450) pg/mL Total Protein (6.4-8.2) g/dl Albumin (3.4-5.0) g/dl Globulin gm/dL Albumin/Globulin Ratio (1-2) Urine Color (Yellow) Urine Appearance (Clear) Urine pH (5.0-8.0) Ur Specific [place] (1.005-1.030) Urine Protein (Negative) Urine Glucose (UA) (Negative) Urine Ketones (Negative) Urine Occult Blood (Negative) Urine Nitrite (Negative) Urine Bilirubin (Negative) Urine Urobilinogen (0.2-1.0) Ur Leukocyte Esterase (Negative) Urine RBC (0-5) /hpf Urine WBC (0-5) /hpf Ur Epithelial Cells (0-5) /hpf Urine Bacteria (FEW) /hpf Urine Mucus (FEW) /hpf 12/13/18 12/13/18 Range/Units 06:24 06:57 WBC (3.98-10.04) K/mm3 RBC (3.98-5.22) M/mm3 Hgb (11.2-15.7) gm/L Hct (34.1-44.9) % MCV (79.4-94.8) fl MCH (25.6-32.2) pg MCHC (32.2-35.5) g/dl RDW Std Deviation (36.4-46.3) fL Plt Count (182-369) K/mm3 MPV (9.4-12.3) fl Neut % (Auto) (34.0-71.1) % Lymph % (Auto) (19.3-51.7) % [place] % (Auto) (4.7-12.5) % Eos % (Auto) (0.7-5.8) Baso % (Auto) (0.1-1.2) % Neut # (Auto) (1.56-6.13) K/mm3 Lymph # (Auto) (1.18-3.74) K/mm3 [place] # (Auto) (0.24-0.36) K/mm3 Eos # (Auto) (0.04-0.36) K/mm3 Baso # (Auto) (0.01-0.08) K/mm3 Manual Slide Review Sodium (136-145) mEq/L Potassium (3.5-5.1) mEq/L Chloride (98-107) mEq/L Carbon Dioxide (21-32) mEq/L Anion Gap (5-15) BUN (7-18) mg/dL Creatinine (0.55-1.02) mg/dL Est Cr Clr Drug Dosing mL/min Estimated GFR (MDRD) (>60) mL/min BUN/Creatinine Ratio (14-18) Glucose (83-115) mg/dL POC Glucose 62 L 96 (83-110) mg/dL Hemoglobin A1c (4.50-6.20) % Calcium (8.5-10.1) mg/dL Magnesium (1.8-2.4) mg/dl Total Bilirubin (0.2-1.0) mg/dL AST (15-37) U/L ALT (14-59) U/L Alkaline Phosphatase (46-116) U/L C-Reactive Protein (<1.0) mg/dL NT-Pro-B Natriuret Pep (0-450) pg/mL Total Protein (6.4-8.2) g/dl Albumin (3.4-5.0) g/dl Globulin gm/dL Albumin/Globulin Ratio (1-2) Urine Color (Yellow) Urine Appearance (Clear) Urine pH (5.0-8.0) Ur Specific [place] (1.005-1.030) Urine Protein (Negative) Urine Glucose (UA) (Negative) Urine Ketones (Negative) Urine Occult Blood (Negative) Urine Nitrite (Negative) Urine Bilirubin (Negative) Urine Urobilinogen (0.2-1.0) Ur Leukocyte Esterase (Negative) Urine RBC (0-5) /hpf Urine WBC (0-5) /hpf Ur Epithelial Cells (0-5) /hpf Urine Bacteria (FEW) /hpf Urine Mucus (FEW) /hpf Michael Results Last 24 Hours: Microbiology 12/12/18 16:40 Helicobacter pylori Antigen - Final Stool / Feces Positive H Pylori Ag Med Orders - Current: Current Medications Acetaminophen (Tylenol) 650 mg PO Q4H PRN PRN Reason: Pain (Mild 1-3)/fever Amlodipine Besylate (Norvasc) 5 mg PO DAILY [facility] Last Admin: 12/12/18 09:35 Dose: 5 mg Amoxicillin (Amoxil) 1,000 mg PO Q8H [facility] Last Admin: 12/13/18 06:33 Dose: 1,000 mg Apixaban (Eliquis) 2.5 mg PO BID [facility] Last Admin: 12/12/18 21:56 Dose: 2.5 mg Bisacodyl (Dulcolax) 10 mg RECTAL BID PRN PRN Reason: Constipation Clarithromycin (Biaxin) 500 mg PO TID [facility] Last Admin: 12/12/18 21:56 Dose: 500 mg Ezetimibe (Zetia) 10 mg PO DAILY [facility] Last Admin: 12/12/18 09:35 Dose: 10 mg Furosemide (Lasix) 40 mg PO DAILY [facility] Last Admin: 12/12/18 09:32 Dose: 40 mg Glipizide (Glucotrol Xl) 5 mg PO BIDMEALS [facility] Last Admin: 12/13/18 06:33 Dose: 5 mg Hydrochlorothiazide (Hydrochlorothiazide) 12.5 mg PO BIDDIURETIC [facility] Last Admin: 12/13/18 06:33 Dose: 12.5 mg Sodium Chloride (Normal Saline) 1,000 mls @ 50 mls/hr IV ASDIRECTED [facility] Last Admin: 12/12/18 22:00 Dose: 50 mls/hr Insulin Human Lispro (Humalog) 0 unit SUBCUT QIDACANDBED [facility]; Protocol Last Admin: 12/13/18 06:59 Dose: Not Given Lactulose (Cephulac) 20 gm PO TID [facility] Stop: 12/13/18 09:01 Last Admin: 12/12/18 21:58 Dose: 20 gm Levothyroxine Sodium (Levothyroxine) 112 mcg PO ACBREAKFAST [facility] Last Admin: 12/13/18 06:33 Dose: 112 mcg Lisinopril (Prinivil) 10 mg PO DAILY [facility] Metformin HCl (Glucophage) 500 mg PO BIDMEALS [facility] Metoprolol Succinate (Toprol Xl) 50 mg PO DAILY [facility] Last Admin: 12/12/18 09:35 Dose: Not Given Metoprolol Succinate (Toprol Xl) 25 mg PO BEDTIME [facility] Last Admin: 12/12/18 21:56 Dose: 25 mg Metoprolol Tartrate (Lopressor) 5 mg IVPUSH Q4H PRN PRN Reason: Tachycardia Last Admin: 12/12/18 19:20 Dose: 5 mg Pantoprazole Sodium (Protonix) 40 mg PO BIDAC [facility] Last Admin: 12/13/18 06:33 Dose: 40 mg Simvastatin (Zocor) 10 mg PO BEDTIME [facility] Last Admin: 12/12/18 21:56 Dose: 10 mg Discontinued Medications Aspirin (Aspirin) 324 mg PO ONETIME ONE Stop: 12/10/18 07:48 Last Admin: 12/10/18 09:47 Dose: 324 mg Al Hydroxide/Mg Hydroxide 30 (ml/ Lidocaine HCl 15 ml) 0 ml PO ONETIME ONE Stop: 12/10/18 16:43 Last Admin: 12/10/18 17:43 Dose: 45 ml Furosemide (Lasix) 20 mg IVPUSH ONETIME ONE Stop: 12/10/18 16:57 Last Admin: 12/10/18 17:45 Dose: 20 mg Furosemide (Lasix) 20 mg PO DAILY [facility] Last Admin: 12/11/18 12:43 Dose: 20 mg Glipizide (Glucotrol Xl) 5 mg PO DAILY [facility] Stop: 12/11/18 21:01 Last Admin: 12/11/18 21:21 Dose: 5 mg Glipizide (Glucotrol Xl) 2.5 mg PO BIDMEALS [facility] Last Admin: 12/12/18 06:55 Dose: 2.5 mg Hydrochlorothiazide (Hydrochlorothiazide) 12.5 mg PO BEDTIME [facility] Stop: 12/11/18 21:01 Last Admin: 12/11/18 21:21 Dose: 12.5 mg Magnesium Sulfate 2 gm/ Premix 50 mls @ 25 mls/hr IV ONETIME ONE Stop: 12/11/18 16:18 Last Admin: 12/11/18 15:23 Dose: 25 mls/hr Sodium Chloride (Normal Saline) 1,000 mls @ 25 mls/hr IV ASDIRECTED [facility] Last Admin: 12/12/18 14:33 Dose: 25 mls/hr Sodium Chloride (Normal Saline) 250 mls @ 250 mls/hr IV BOLUS ONE Stop: 12/12/18 21:39 Last Admin: 12/12/18 20:45 Dose: 250 mls/hr Lisinopril (Prinivil) 10 mg PO DAILY [facility] Last Admin: 12/12/18 09:33 Dose: 10 mg Magnesium Sulfate (Pharmacy To Dose - Magnesium Replacement) 1 dose .XX ASDIRECTED [facility] Metformin HCl (Glucophage) 500 mg PO BIDMEALS [facility] Last Admin: 12/12/18 06:55 Dose: 500 mg Metoclopramide HCl (Reglan) 5 mg IVPUSH ONETIME ONE Stop: 12/10/18 09:00 Last Admin: 12/10/18 09:02 Dose: 5 mg Ondansetron HCl (Zofran) 4 mg IVPUSH ONETIME ONE Stop: 12/10/18 08:21 Last Admin: 12/10/18 08:31 Dose: 4 mg Potassium Chloride (Pharmacy To Dose - Potassium Replacement) 1 dose .XX ASDIRECTED [facility] Potassium Chloride (Klor-Con M20) 20 meq PO ONETIME ONE Stop: 12/12/18 12:31 Last Admin: 12/12/18 14:16 Dose: 20 meq Regadenoson (Lexiscan) 0.4 mg IVPUSH ONETIME ONE Stop: 12/11/18 06:56 Last Admin: 12/11/18 07:44 Dose: 0.4 mg - Exam General: Alert, Oriented HEENT: Pupils Equal, Pupils Reactive, EOMI, Mucous Membr. Moist/[place] Neck: Supple Lungs: Normal Respiratory Effort, Crackles (mild at the bases) Cardiovascular: Regular Rate, Regular Rhythm GI/Abdominal Exam: Normal Bowel Sounds, Soft, Non-Tender, No Organomegaly, No Distention, No Abnormal Bruit (Female) Exam: Deferred Back Exam: Normal Inspection, Decreased Range of Motion Extremities: Normal Inspection, Normal Range of Motion, Non-Tender, No Pedal Edema, Normal Capillary Refill Peripheral Pulses: 2+: Dorsalis Pedis (L), Dorsalis Pedis (R) Skin: Warm, Dry, Intact Neurological: No New Focal Deficit. No: Normal Gait Psy/Mental Status: Alert, Normal Affect, Normal Mood - Problem List Review Problem List Initiated/Reviewed/Updated: Yes - My Orders Last 24 Hours: My Active Orders 12/12/18 09:00 Furosemide [Lasix] 40 mg PO DAILY 12/12/18 13:39 Bisacodyl [Dulcolax] 10 mg RECTAL BID PRN 12/12/18 15:00 Lactulose [Cephulac] 20 gm PO TID 12/12/18 17:00 glipiZIDE [Glucotrol XL] 5 mg PO BIDMEALS 12/12/18 18:58 Metoprolol Succinate [Toprol XL] 25 mg PO BEDTIME Metoprolol Tartrate [Lopressor] 5 mg IVPUSH Q4H PRN 12/12/18 20:45 Sodium Chloride 0.9% [Normal Saline] 1,000 ml IV ASDIRECTED 12/12/18 21:00 Amoxicillin [Amoxil] 1,000 mg PO Q8H Clarithromycin [Biaxin] 500 mg PO TID 12/15/18 09:00 Lisinopril [Prinivil] 10 mg PO DAILY metFORMIN [Glucophage] 500 mg PO BIDMEALS - Plan Plan:: Assessment: 88-year-old female with type 2 diabetes with new onset atrial fibrillation * S/p Chest Pain r/o ACS- negative serial troponin; EKG shows no acute ischemic changes; lipid panel-wnl; Nuclear stress test report read as suspicious for previous infarct within the apex and adjacent septum, nothing is seen to indicate reversible ischemia * Congestive Heart Failure- mild exacerbation; BNP 1260--> 4316; on Lasix 40 mg po daily and Monopril 20mg po daily; 2D echo shows EF of 65-70%, No RWMA, Moderate MVR, Right Ventricular Systolic Pressure is Moderately elevated at 50.5 mmHg (Pulmonary HTN); improved clinically and by x-ray imaging * Atrial Fibrillation- new onset; HR is not well controlled; Metoprolol Succinate at 50 mg po daily and added Metoprolol Tartrate last night; NEDRA-VAsc Score of 6 with a HAS BLED Score of 3; she is currently on Eliquis 2.5 mg po BID for stroke prophylaxis; Consider changing it 100 mg po Daily * Mild Thrombocytopenia - platelet of 109 and 107; unchanged; no active bleeding or melenic stools; will monitor * Diabetes Mellitus 2 - w/ Hypoglycemia due reduced renal function; we will cut down on her Glucotrol and if she has another episode we will stop it and stay with ISS * S/p Constipation - has had 4-5 bowel movements after receiving lactulose and bisacodyl bowel prep * Leukocytosis - 2/2 H. Pylori infection; WBC of 118-->120K, now 15K; CRP is 34 and 43 this morning; she is on oral antibiotic * Acute Kidney Injury - 2/2 diuretics use; ACEI and Metformin have been held; HCTZ adjusted; start IV fluid to prevent further kidney injury * H. Pylori infection- on triple therapy regime with amoxicillin/clarithromycin and PPI. She may need endoscopy outpatient; family unsure of PUD hx in the past ; we will adjust dosing and if needed hold it if renal function continue to worsen * Hypokalemia- K of 3.1 2/2 GI loss; we will replete and monitor * Hypoxemia- she is on 1-2L NC since admission; we will perform O2 study overnight; she has pulmonary hypertension Plan: * Clinically no change but due to diarrhea her renal function worsened. This would likely affect her glucose level. We will stop diuretics and glucotrol as well as adjust her antibiotic regimen * Continue maintenance fluid for renal perfusion; repeat BMP this afternoon * Daily CBC, CMP, mag, and BNP in the morning * If repeat BMP is worse; we will discontinue all diuretics and avoid nephrotoxic agents * Stroke/VTE prophylaxis with Eliquis * CODE STATUS: DNR/DNI * LOS anticipate > 96 hrs due renal injury and now not well controlled heart rate
[2018-12-13] MEDS: Furosemide 40 MG Tab PO SCH ×2 (07:55→08:00)
[2018-12-13] MEDS: Apixaban 2.5 MG Tab PO SCH ×3 (07:55→21:38)
[2018-12-13] MEDS: Metoprolol Succinate 50 MG Tab.ER PO SCH (07:55)
[2018-12-13] MEDS: amLODIPine 5 MG Tab PO SCH ×2 (07:56→08:02)
[2018-12-13] MEDS: Ezetimibe 10 MG Tab PO SCH ×2 (07:56→08:00)
[2018-12-13] MEDS: Potassium Chloride 20 MEQ Tab.ER PO SCH ×2 (07:58→08:00)
[2018-12-13] MEDS: Lactulose Soln 10 GM/15 ML 30 ML UD Cup PO SCH (07:59)
[2018-12-13] MEDS ORDERED: Hydrochlorothiazide 12.5 MG Cap PO SCH (09:00)
[2018-12-13] MEDS ORDERED: Metoprolol Succinate 50 MG Tab.ER PO SCH (09:00)
[2018-12-13] MEDS ORDERED: Sodium Chloride 0.9% 1,000 ML IV SCH ×2 (11:45→17:00)
[2018-12-13] MEDS ORDERED: glipiZIDE 2.5 MG Tab.ER PO SCH (17:00)
[2018-12-13] MEDS ORDERED: Amoxicillin 500 MG Cap PO SCH (21:00)
[2018-12-13] MEDS ORDERED: Metoprolol Succinate 50 MG Tab.ER PO ONE (21:00)
[2018-12-13] MEDS: Simvastatin 10 MG Tab PO SCH (21:40)
[2018-12-13] MEDS ORDERED: 50% Dextrose in Water 50 ML Syringe IVPUSH ONE (22:15)
[2018-12-14] MEDS ORDERED: Sodium Chloride 0.9% 250 ML IV ONE
[2018-12-14] MEDS ORDERED: Sodium Chloride 0.9% 1,000 ML IV SCH
[2018-12-14] MEDS: Levothyroxine 112 MCG Tab PO SCH (05:48)
[2018-12-14] MEDS: Pantoprazole 40 MG Tab.CR PO SCH ×2 (05:51→17:10)
[2018-12-14] MEDS: Insulin Lispro 100 Units/ML 3 ML Vial SUBCUT SCH ×2 (06:05→11:20)
[2018-12-14] MEDS ORDERED: Potassium Chloride 20 MEQ Tab.ER PO ONE (07:01)
[2018-12-14] MEDS: Ezetimibe 10 MG Tab PO SCH (08:34)
[2018-12-14] MEDS: Metoprolol Succinate 50 MG Tab.ER PO SCH (08:34)
[2018-12-14] MEDS: amLODIPine 5 MG Tab PO SCH (08:34)
[2018-12-14] MEDS: Apixaban 2.5 MG Tab PO SCH ×2 (08:34→22:09)
[2018-12-14] MEDS: Amoxicillin 500 MG Cap PO SCH (08:35)
[2018-12-14] MEDS: Potassium Chloride 20 MEQ Tab.ER PO SCH (09:34)
--- NOTE | 2018-12-14 15:33 | PCM.PN ---
- General Info Date of Service: 12/14/18 Admission Dx/Problem (Free Text): Admission Diagnosis/Problem Admission Diagnosis/Problem Atrial fibrillation Subjective Update: No overnight issues. Her renal function is much better this morning. She verbalizes no new complaints but she looks fatigue and a bit weaker than yesterday. No change in appetite or oral intake. She remains afebrile but with improved WBC and CRP levels. Functional Status: Reports: Pain Controlled, Tolerating Diet, Ambulating, Urinating. Denies: New Symptoms - Review of Systems General: Reports: Fatigue, Malaise. Denies: Fever, Chills HEENT: Reports: No Symptoms Pulmonary: Denies: Shortness of Breath, Cough Cardiovascular: Denies: Chest Pain, Dyspnea on Exertion, PND, Edema, Lightheadedness Gastrointestinal: Denies: Abdominal Pain, Nausea, Vomiting Genitourinary: Reports: No Symptoms Musculoskeletal: Reports: No Symptoms Skin: Reports: No Symptoms Neurological: Reports: Weakness, Gait Disturbance. Denies: Confusion Psychiatric: Denies: Depression, Anxiety, Agitation, Hallucinations - Patient Data Vitals - Most Recent: Last Vital Signs Temp 37.2 C 12/14/18 11:20 Pulse 98 12/14/18 11:20 Resp 20 12/14/18 11:20 BP 102/61 12/14/18 11:20 Pulse Ox 95 12/14/18 11:20 Weight - Most Recent: 91.898 kg I&O - Last 24 Hours: Intake & Output 12/14/18 12/14/18 12/14/18 06:59 14:59 22:59 Intake Total 1667 240 Output Total 1000 Balance 667 240 Lab Results Last 24 Hours: Laboratory Results - last 24 hr 12/13/18 12/13/18 12/13/18 Range/Units 16:09 17:00 17:18 WBC (3.98-10.04) K/mm3 RBC (3.98-5.22) M/mm3 Hgb (11.2-15.7) gm/L Hct (34.1-44.9) % MCV (79.4-94.8) fl MCH (25.6-32.2) pg MCHC (32.2-35.5) g/dl RDW Std Deviation (36.4-46.3) fL Plt Count (182-369) K/mm3 MPV (9.4-12.3) fl Neut % (Auto) (34.0-71.1) % Lymph % (Auto) (19.3-51.7) % [place] % (Auto) (4.7-12.5) % Eos % (Auto) (0.7-5.8) Baso % (Auto) (0.1-1.2) % Neut # (Auto) (1.56-6.13) K/mm3 Lymph # (Auto) (1.18-3.74) K/mm3 [place] # (Auto) (0.24-0.36) K/mm3 Eos # (Auto) (0.04-0.36) K/mm3 Baso # (Auto) (0.01-0.08) K/mm3 Manual Slide Review Sodium 134 L (136-145) mEq/L Potassium 3.8 (3.5-5.1) mEq/L Chloride 97 L (98-107) mEq/L Carbon Dioxide 31 (21-32) mEq/L Anion Gap 9.8 (5-15) BUN 41 H (7-18) mg/dL Creatinine 1.5 H (0.55-1.02) mg/dL Est Cr Clr Drug Dosing 20.11 mL/min Estimated GFR (MDRD) 33 (>60) mL/min BUN/Creatinine Ratio 27.3 H (14-18) Glucose 58 L (83-115) mg/dL POC Glucose 47 L 70 L (83-110) mg/dL Calcium 8.8 (8.5-10.1) mg/dL Magnesium (1.8-2.4) mg/dl C-Reactive Protein (<1.0) mg/dL 12/13/18 12/13/18 12/13/18 Range/Units 18:16 21:33 22:05 WBC (3.98-10.04) K/mm3 RBC (3.98-5.22) M/mm3 Hgb (11.2-15.7) gm/L Hct (34.1-44.9) % MCV (79.4-94.8) fl MCH (25.6-32.2) pg MCHC (32.2-35.5) g/dl RDW Std Deviation (36.4-46.3) fL Plt Count (182-369) K/mm3 MPV (9.4-12.3) fl Neut % (Auto) (34.0-71.1) % Lymph % (Auto) (19.3-51.7) % [place] % (Auto) (4.7-12.5) % Eos % (Auto) (0.7-5.8) Baso % (Auto) (0.1-1.2) % Neut # (Auto) (1.56-6.13) K/mm3 Lymph # (Auto) (1.18-3.74) K/mm3 [place] # (Auto) (0.24-0.36) K/mm3 Eos # (Auto) (0.04-0.36) K/mm3 Baso # (Auto) (0.01-0.08) K/mm3 Manual Slide Review Sodium (136-145) mEq/L Potassium (3.5-5.1) mEq/L Chloride (98-107) mEq/L Carbon Dioxide (21-32) mEq/L Anion Gap (5-15) BUN (7-18) mg/dL Creatinine (0.55-1.02) mg/dL Est Cr Clr Drug Dosing mL/min Estimated GFR (MDRD) (>60) mL/min BUN/Creatinine Ratio (14-18) Glucose (83-115) mg/dL POC Glucose 112 H 72 L 86 (83-110) mg/dL Calcium (8.5-10.1) mg/dL Magnesium (1.8-2.4) mg/dl C-Reactive Protein (<1.0) mg/dL 12/13/18 12/14/18 12/14/18 Range/Units 22:55 00:55 05:13 WBC 13.67 H (3.98-10.04) K/mm3 RBC 4.04 (3.98-5.22) M/mm3 Hgb 11.6 (11.2-15.7) gm/L Hct 36.8 (34.1-44.9) % MCV 91.1 (79.4-94.8) fl MCH 28.7 (25.6-32.2) pg MCHC 31.5 L (32.2-35.5) g/dl RDW Std Deviation 45.2 (36.4-46.3) fL Plt Count 105 L (182-369) K/mm3 MPV 11.7 (9.4-12.3) fl Neut % (Auto) 84.0 H (34.0-71.1) % Lymph % (Auto) 5.0 L (19.3-51.7) % [place] % (Auto) 10.1 (4.7-12.5) % Eos % (Auto) 0.1 L (0.7-5.8) Baso % (Auto) 0.1 (0.1-1.2) % Neut # (Auto) 11.49 H (1.56-6.13) K/mm3 Lymph # (Auto) 0.69 L (1.18-3.74) K/mm3 [place] # (Auto) 1.38 H (0.24-0.36) K/mm3 Eos # (Auto) 0.01 L (0.04-0.36) K/mm3 Baso # (Auto) 0.01 (0.01-0.08) K/mm3 Manual Slide Review Abnormal smear Sodium (136-145) mEq/L Potassium (3.5-5.1) mEq/L Chloride (98-107) mEq/L Carbon Dioxide (21-32) mEq/L Anion Gap (5-15) BUN (7-18) mg/dL Creatinine (0.55-1.02) mg/dL Est Cr Clr Drug Dosing mL/min Estimated GFR (MDRD) (>60) mL/min BUN/Creatinine Ratio (14-18) Glucose (83-115) mg/dL POC Glucose 188 H 161 H (83-110) mg/dL Calcium (8.5-10.1) mg/dL Magnesium (1.8-2.4) mg/dl C-Reactive Protein (<1.0) mg/dL 12/14/18 12/14/18 12/14/18 Range/Units 05:13 05:35 06:11 WBC (3.98-10.04) K/mm3 RBC (3.98-5.22) M/mm3 Hgb (11.2-15.7) gm/L Hct (34.1-44.9) % MCV (79.4-94.8) fl MCH (25.6-32.2) pg MCHC (32.2-35.5) g/dl RDW Std Deviation (36.4-46.3) fL Plt Count (182-369) K/mm3 MPV (9.4-12.3) fl Neut % (Auto) (34.0-71.1) % Lymph % (Auto) (19.3-51.7) % [place] % (Auto) (4.7-12.5) % Eos % (Auto) (0.7-5.8) Baso % (Auto) (0.1-1.2) % Neut # (Auto) (1.56-6.13) K/mm3 Lymph # (Auto) (1.18-3.74) K/mm3 [place] # (Auto) (0.24-0.36) K/mm3 Eos # (Auto) (0.04-0.36) K/mm3 Baso # (Auto) (0.01-0.08) K/mm3 Manual Slide Review Sodium 136 (136-145) mEq/L Potassium 3.2 L (3.5-5.1) mEq/L Chloride 98 (98-107) mEq/L Carbon Dioxide 29 (21-32) mEq/L Anion Gap 12.2 (5-15) BUN 39 H (7-18) mg/dL Creatinine 1.2 H (0.55-1.02) mg/dL Est Cr Clr Drug Dosing 25.14 mL/min Estimated GFR (MDRD) 42 (>60) mL/min BUN/Creatinine Ratio 32.5 H (14-18) Glucose 75 L (83-115) mg/dL POC Glucose 64 L 103 (83-110) mg/dL Calcium 8.1 L (8.5-10.1) mg/dL Magnesium 2.0 (1.8-2.4) mg/dl C-Reactive Protein 31.7 H* (<1.0) mg/dL 12/14/18 Range/Units 11:15 WBC (3.98-10.04) K/mm3 RBC (3.98-5.22) M/mm3 Hgb (11.2-15.7) gm/L Hct (34.1-44.9) % MCV (79.4-94.8) fl MCH (25.6-32.2) pg MCHC (32.2-35.5) g/dl RDW Std Deviation (36.4-46.3) fL Plt Count (182-369) K/mm3 MPV (9.4-12.3) fl Neut % (Auto) (34.0-71.1) % Lymph % (Auto) (19.3-51.7) % [place] % (Auto) (4.7-12.5) % Eos % (Auto) (0.7-5.8) Baso % (Auto) (0.1-1.2) % Neut # (Auto) (1.56-6.13) K/mm3 Lymph # (Auto) (1.18-3.74) K/mm3 [place] # (Auto) (0.24-0.36) K/mm3 Eos # (Auto) (0.04-0.36) K/mm3 Baso # (Auto) (0.01-0.08) K/mm3 Manual Slide Review Sodium (136-145) mEq/L Potassium (3.5-5.1) mEq/L Chloride (98-107) mEq/L Carbon Dioxide (21-32) mEq/L Anion Gap (5-15) BUN (7-18) mg/dL Creatinine (0.55-1.02) mg/dL Est Cr Clr Drug Dosing mL/min Estimated GFR (MDRD) (>60) mL/min BUN/Creatinine Ratio (14-18) Glucose (83-115) mg/dL POC Glucose 154 H (83-110) mg/dL Calcium (8.5-10.1) mg/dL Magnesium (1.8-2.4) mg/dl C-Reactive Protein (<1.0) mg/dL Med Orders - Current: Current Medications Acetaminophen (Tylenol) 650 mg PO Q4H PRN PRN Reason: Pain (Mild 1-3)/fever Last Admin: 12/13/18 15:41 Dose: 650 mg Amlodipine Besylate (Norvasc) 5 mg PO DAILY [facility] Last Admin: 12/14/18 08:34 Dose: 5 mg Apixaban (Eliquis) 2.5 mg PO BID [facility] Last Admin: 12/14/18 08:34 Dose: 2.5 mg Bisacodyl (Dulcolax) 10 mg RECTAL BID PRN PRN Reason: Constipation Ezetimibe (Zetia) 10 mg PO DAILY [facility] Last Admin: 12/14/18 08:34 Dose: 10 mg Levothyroxine Sodium (Levothyroxine) 112 mcg PO ACBREAKFAST [facility] Last Admin: 12/14/18 05:48 Dose: 112 mcg Lisinopril (Prinivil) 10 mg PO DAILY [facility] Metformin HCl (Glucophage) 500 mg PO BIDMEALS [facility] Metoprolol Succinate (Toprol Xl) 100 mg PO DAILY [facility] Last Admin: 12/14/18 08:34 Dose: 100 mg Metoprolol Tartrate (Lopressor) 5 mg IVPUSH Q4H PRN PRN Reason: Tachycardia Last Admin: 12/12/18 19:20 Dose: 5 mg Pantoprazole Sodium (Protonix) 40 mg PO BIDAC [facility] Last Admin: 12/14/18 05:51 Dose: 40 mg Potassium Chloride (Klor-Con M20) 40 meq PO DAILY [facility] Last Admin: 12/14/18 09:34 Dose: 40 meq Simvastatin (Zocor) 10 mg PO BEDTIME [facility] Last Admin: 12/13/18 21:40 Dose: 10 mg Discontinued Medications Amoxicillin (Amoxil) 1,000 mg PO Q8H [facility] Last Admin: 12/13/18 13:29 Dose: 1,000 mg Amoxicillin (Amoxil) 500 mg PO Q8H [facility] Amoxicillin (Amoxil) 500 mg PO Q12HR [facility] Last Admin: 12/14/18 08:35 Dose: Not Given Aspirin (Aspirin) 324 mg PO ONETIME ONE Stop: 12/10/18 07:48 Last Admin: 12/10/18 09:47 Dose: 324 mg Clarithromycin (Biaxin) 500 mg PO TID [facility] Last Admin: 12/13/18 16:53 Dose: Not Given Clarithromycin (Biaxin) 250 mg PO Q8H [facility] Last Admin: 12/13/18 17:04 Dose: Not Given Clarithromycin (Biaxin) 250 mg PO Q12H [facility] Last Admin: 12/14/18 05:50 Dose: 250 mg Al Hydroxide/Mg Hydroxide 30 (ml/ Lidocaine HCl 15 ml) 0 ml PO ONETIME ONE Stop: 12/10/18 16:43 Last Admin: 12/10/18 17:43 Dose: 45 ml Dextrose/Water (Dextrose 50% In Water) 50 ml IVPUSH ASDIRECTED ONE Stop: 12/13/18 22:16 Last Admin: 12/13/18 22:29 Dose: 50 ml Furosemide (Lasix) 20 mg IVPUSH ONETIME ONE Stop: 12/10/18 16:57 Last Admin: 12/10/18 17:45 Dose: 20 mg Furosemide (Lasix) 20 mg PO DAILY [facility] Last Admin: 12/11/18 12:43 Dose: 20 mg Furosemide (Lasix) 40 mg PO DAILY [facility] Last Admin: 12/13/18 08:00 Dose: Not Given Glipizide (Glucotrol Xl) 5 mg PO DAILY [facility] Stop: 12/11/18 21:01 Last Admin: 12/11/18 21:21 Dose: 5 mg Glipizide (Glucotrol Xl) 2.5 mg PO BIDMEALS [facility] Last Admin: 12/12/18 06:55 Dose: 2.5 mg Glipizide (Glucotrol Xl) 5 mg PO BIDMEALS [facility] Last Admin: 12/13/18 06:33 Dose: 5 mg Glipizide (Glucotrol Xl) 2.5 mg PO BIDMEALS [facility] Last Admin: 12/13/18 17:28 Dose: Not Given Hydrochlorothiazide (Hydrochlorothiazide) 12.5 mg PO BIDDIURETIC [facility] Last Admin: 12/13/18 06:33 Dose: 12.5 mg Hydrochlorothiazide (Hydrochlorothiazide) 12.5 mg PO BEDTIME [facility] Stop: 12/11/18 21:01 Last Admin: 12/11/18 21:21 Dose: 12.5 mg Hydrochlorothiazide (Hydrochlorothiazide) 12.5 mg PO DAILY [facility] Last Admin: 12/13/18 08:31 Dose: 12.5 mg Magnesium Sulfate 2 gm/ Premix 50 mls @ 25 mls/hr IV ONETIME ONE Stop: 12/11/18 16:18 Last Admin: 12/11/18 15:23 Dose: 25 mls/hr Sodium Chloride (Normal Saline) 1,000 mls @ 25 mls/hr IV ASDIRECTED [facility] Last Admin: 12/12/18 14:33 Dose: 25 mls/hr Sodium Chloride (Normal Saline) 250 mls @ 250 mls/hr IV BOLUS ONE Stop: 12/12/18 21:39 Last Admin: 12/12/18 20:45 Dose: 250 mls/hr Sodium Chloride (Normal Saline) 1,000 mls @ 50 mls/hr IV ASDIRECTED [facility] Last Infusion: 12/13/18 11:44 Dose: 15 mls/hr Sodium Chloride (Normal Saline) 1,000 mls @ 15 mls/hr IV ASDIRECTED [facility] Last Infusion: 12/13/18 16:54 Dose: 50 mls/hr Sodium Chloride (Normal Saline) 1,000 mls @ 50 mls/hr IV ASDIRECTED [facility] Sodium Chloride (Normal Saline) 250 mls @ 999 mls/hr IV .BOLUS ONE Stop: 12/14/18 00:15 Last Admin: 12/14/18 00:32 Dose: 999 mls/hr Sodium Chloride (Normal Saline) 1,000 mls @ 25 mls/hr IV ASDIRECTED [facility] Last Admin: 12/14/18 08:41 Dose: 25 mls/hr Insulin Human Lispro (Humalog) 0 unit SUBCUT QIDACANDBED [facility]; Protocol Last Admin: 12/14/18 11:20 Dose: Not Given Lactulose (Cephulac) 20 gm PO TID [facility] Stop: 12/13/18 09:01 Last Admin: 12/13/18 07:59 Dose: Not Given Lisinopril (Prinivil) 10 mg PO DAILY [facility] Last Admin: 12/12/18 09:33 Dose: 10 mg Magnesium Sulfate (Pharmacy To Dose - Magnesium Replacement) 1 dose .XX ASDIRECTED [facility] Metformin HCl (Glucophage) 500 mg PO BIDMEALS [facility] Last Admin: 12/12/18 06:55 Dose: 500 mg Metoclopramide HCl (Reglan) 5 mg IVPUSH ONETIME ONE Stop: 12/10/18 09:00 Last Admin: 12/10/18 09:02 Dose: 5 mg Metoprolol Succinate (Toprol Xl) 50 mg PO DAILY [facility] Last Admin: 12/13/18 07:55 Dose: 50 mg Metoprolol Succinate (Toprol Xl) 25 mg PO BEDTIME [facility] Last Admin: 12/12/18 21:56 Dose: 25 mg Metoprolol Succinate (Toprol Xl) 50 mg PO BID [facility] Last Admin: 12/13/18 08:00 Dose: Not Given Metoprolol Succinate (Toprol Xl) 50 mg PO ONETIME ONE Stop: 12/13/18 21:01 Last Admin: 12/13/18 21:38 Dose: 50 mg Ondansetron HCl (Zofran) 4 mg IVPUSH ONETIME ONE Stop: 12/10/18 08:21 Last Admin: 12/10/18 08:31 Dose: 4 mg Potassium Chloride (Pharmacy To Dose - Potassium Replacement) 1 dose .XX ASDIRECTED [facility] Potassium Chloride (Klor-Con M20) 20 meq PO ONETIME ONE Stop: 12/12/18 12:31 Last Admin: 12/12/18 14:16 Dose: 20 meq Potassium Chloride (Klor-Con M20) 40 meq PO ONETIME ONE Stop: 12/14/18 07:02 Last Admin: 12/14/18 08:35 Dose: 40 meq Regadenoson (Lexiscan) 0.4 mg IVPUSH ONETIME ONE Stop: 12/11/18 06:56 Last Admin: 12/11/18 07:44 Dose: 0.4 mg - Exam Quality Assessment: Supplemental Oxygen General: Alert, Oriented, Cooperative, Sedated, Other (Obese) HEENT: Pupils Equal, Pupils Reactive, EOMI, Mucous Membr. Moist/[place] Neck: Supple Lungs: Normal Respiratory Effort, Decreased Breath Sounds, Crackles (minila crackles on the right base) Cardiovascular: Irregular Rhythm GI/Abdominal Exam: Normal Bowel Sounds, Soft, Non-Tender, No Organomegaly, No Distention, No Abnormal Bruit, Other (Obese) (Female) Exam: Deferred Back Exam: Normal Inspection, Decreased Range of Motion Extremities: Normal Inspection, Normal Range of Motion, Non-Tender, No Pedal Edema, Normal Capillary Refill Peripheral Pulses: 2+: Dorsalis Pedis (L), Dorsalis Pedis (R) Skin: Warm, Dry, Intact, Ecchymosis (on both arms) Neurological: No New Focal Deficit. No: Normal Gait Psy/Mental Status: Alert, Normal Affect, Normal Mood - Problem List Review Problem List Initiated/Reviewed/Updated: Yes - My Orders Last 24 Hours: My Active Orders 12/13/18 16:10 Overnight Pulse Oximetry [Overnight Pulse Oximetry] [RC] Click to Edit 12/14/18 09:00 Metoprolol Succinate [Toprol XL] 100 mg PO DAILY 12/14/18 13:16 Communication Order [RC] ROUTINE 12/15/18 05:11 BMP [BASIC METABOLIC PANEL,BMP] [CHEM] AM CRP [C-REACTIVE PROTEIN] [CHEM] AM 12/15/18 09:00 Lisinopril [Prinivil] 10 mg PO DAILY metFORMIN [Glucophage] 500 mg PO BIDMEALS 12/16/18 05:11 BMP [BASIC METABOLIC PANEL,BMP] [CHEM] AM CRP [C-REACTIVE PROTEIN] [CHEM] AM 12/17/18 05:11 BMP [BASIC METABOLIC PANEL,BMP] [CHEM] AM CRP [C-REACTIVE PROTEIN] [CHEM] AM - Plan Plan:: Assessment: 88-year-old female with type 2 diabetes with new onset atrial fibrillation * Congestive Heart Failure- mild exacerbation; BNP 1260--> 4316; on Lasix 40 mg po daily and Monopril 20mg po daily; 2D echo shows EF of 65-70%, No RWMA, Moderate MVR, Right Ventricular Systolic Pressure is Moderately elevated at 50.5 mmHg (Pulmonary HTN); improved clinically and by x-ray imaging * Atrial Fibrillation- new onset; HR is better controlled; Metoprolol Succinate at 100 mg po daily; NEDRA-VAsc Score of 6 with a HAS BLED Score of 3; she is currently on Eliquis 2.5 mg po BID for stroke prophylaxis * Mild Thrombocytopenia - platelet of 109 and 107; unchanged; no active bleeding or melenic stools; will monitor * Diabetes Mellitus 2 - w/ Hypoglycemia due reduced renal function; Glucotrol was discontinued yesterday; we will stop ISS * Leukocytosis - 2/2 H. Pylori infection; WBC of 118-->120K-->15K-->13.67; CRP is 34-->43-->31.7 this morning; she is on oral antibiotic * Acute Kidney Injury- 2/2 diuretics use; ACEI/Metformin and diuretics have been held since yesterday; discontinue IV fluids * H. Pylori infection- on triple therapy regime with amoxicillin/clarithromycin and PPI. She may need endoscopy outpatient; family unsure of PUD hx in the past ; we will adjust dosing and if needed hold it if renal function continue to worsen * Hypokalemia- K of 3.1-->3.2 2/2 GI loss; we will replete and monitor * Hypoxemia- she is on 1-2L NC since admission; we will perform O2 study overnight; she has pulmonary hypertension * Generalized Weakness 2/2 acute illness- for Chest Pain, Acute Heart Failure, Atrial Fibrillation, CANDICE with resultant Hypoglycemia, Hyperglycemia, Constipation with Resultant Diarrhea, H. Pylori Infection- PT/OT now recommends SNF placement * Class II Obesity- dietary consult for weight management Resolved: * S/p Constipation - has had 4-5 bowel movements after receiving lactulose and bisacodyl bowel prep * S/p Chest Pain r/o ACS- negative serial troponin; EKG shows no acute ischemic changes; lipid panel-wnl; Nuclear stress test report read as suspicious for previous infarct within the apex and adjacent septum, nothing is seen to indicate reversible ischemia Plan: * She remains clinically stable however she seems to be a bit weak and non- enthusiastic this morning. Her renal function has improved since yesterday. However PT/OT is now recommending SNF for deconditioning * Continue maintenance fluid for renal perfusion; repeat BMP this afternoon * Daily CBC, CMP, mag, and BNP in the morning * If repeat BMP is worse; we will discontinue all diuretics and avoid nephrotoxic agents * Stroke/VTE prophylaxis with Eliquis * CODE STATUS: DNR/DNI * LOS > 96 hrs due SNF placement
[2018-12-14] MEDS ORDERED: Furosemide 20 MG/2 ML VIAL IVPUSH ONE (19:37)
[2018-12-14] MEDS ORDERED: Hydrochlorothiazide 12.5 MG Cap PO SCH (21:00)
[2018-12-14] MEDS: Simvastatin 10 MG Tab PO SCH (22:09)
[2018-12-15] MEDS: Levothyroxine 112 MCG Tab PO SCH (05:07)
[2018-12-15] MEDS: Pantoprazole 40 MG Tab.CR PO SCH ×2 (05:07→15:23)
--- NOTE | 2018-12-15 07:04 | PCM.PN ---
- General Info Date of Service: 12/15/18 Admission Dx/Problem (Free Text): Admission Diagnosis/Problem Admission Diagnosis/Problem Atrial fibrillation Subjective Update: No overnight issues. Her renal function is now back baseline. She complaints of mid abdomen pain that is constant in nature but improved with defecation. otherwise she is doing relatively well. She remains afebrile; WBC and CRP levels continue to trend down. Functional Status: Reports: Pain Controlled, Tolerating Diet, Ambulating, Urinating. Denies: New Symptoms - Review of Systems General: Denies: Fever, Weakness, Fatigue, Malaise, Chills HEENT: Reports: No Symptoms Pulmonary: Reports: Wheezing. Denies: Shortness of Breath, Cough, Sputum Cardiovascular: Denies: Chest Pain, Palpitations, Dyspnea on Exertion, Edema, Lightheadedness Gastrointestinal: Reports: Decreased Appetite, Other (abdominal discomfort). Denies: Abdominal Pain, Nausea, Vomiting Genitourinary: Reports: No Symptoms Musculoskeletal: Reports: No Symptoms Skin: Denies: Cyanosis, Pallor, Diaphoresis, Bruising, Rash Neurological: Reports: Difficulty Walking, Gait Disturbance. Denies: Weakness Psychiatric: Denies: Confusion, Mood Lability, Anxiety, Agitation, Hallucinations - Patient Data Vitals - Most Recent: Last Vital Signs Temp 37.1 C 12/15/18 04:31 Pulse 100 12/15/18 04:31 Resp 20 12/15/18 04:31 BP 123/76 12/15/18 04:31 Pulse Ox 93 L 12/15/18 04:31 Weight - Most Recent: 92.17 kg I&O - Last 24 Hours: Intake & Output 12/14/18 12/15/18 12/15/18 22:59 06:59 14:59 Intake Total 1610 300 Output Total 750 Balance 860 300 Lab Results Last 24 Hours: Laboratory Results - last 24 hr 12/14/18 12/14/18 12/14/18 Range/Units 05:13 11:15 17:09 WBC (3.98-10.04) K/mm3 RBC (3.98-5.22) M/mm3 Hgb (11.2-15.7) gm/L Hct (34.1-44.9) % MCV (79.4-94.8) fl MCH (25.6-32.2) pg MCHC (32.2-35.5) g/dl RDW Std Deviation (36.4-46.3) fL Plt Count (182-369) K/mm3 MPV (9.4-12.3) fl Neut % (Auto) (34.0-71.1) % Lymph % (Auto) (19.3-51.7) % Shelby % (Auto) (4.7-12.5) % Eos % (Auto) (0.7-5.8) Baso % (Auto) (0.1-1.2) % Neut # (Auto) (1.56-6.13) K/mm3 Lymph # (Auto) (1.18-3.74) K/mm3 Shelby # (Auto) (0.24-0.36) K/mm3 Eos # (Auto) (0.04-0.36) K/mm3 Baso # (Auto) (0.01-0.08) K/mm3 Manual Slide Review Sodium (136-145) mEq/L Potassium (3.5-5.1) mEq/L Chloride (98-107) mEq/L Carbon Dioxide (21-32) mEq/L Anion Gap (5-15) BUN (7-18) mg/dL Creatinine (0.55-1.02) mg/dL Est Cr Clr Drug Dosing mL/min Estimated GFR (MDRD) (>60) mL/min BUN/Creatinine Ratio (14-18) Glucose (83-115) mg/dL POC Glucose 154 H 94 (83-110) mg/dL Calcium (8.5-10.1) mg/dL Magnesium (1.8-2.4) mg/dl C-Reactive Protein 31.7 H* (<1.0) mg/dL 12/14/18 12/15/18 12/15/18 Range/Units 21:39 05:15 05:15 WBC 10.81 H (3.98-10.04) K/mm3 RBC 3.74 L (3.98-5.22) M/mm3 Hgb 11.2 (11.2-15.7) gm/L Hct 34.1 (34.1-44.9) % MCV 91.2 (79.4-94.8) fl MCH 29.9 (25.6-32.2) pg MCHC 32.8 (32.2-35.5) g/dl RDW Std Deviation 45.7 (36.4-46.3) fL Plt Count 97 L (182-369) K/mm3 MPV 12.0 (9.4-12.3) fl Neut % (Auto) 83.3 H (34.0-71.1) % Lymph % (Auto) 6.1 L (19.3-51.7) % Shelby % (Auto) 10.1 (4.7-12.5) % Eos % (Auto) 0.4 L (0.7-5.8) Baso % (Auto) 0.1 (0.1-1.2) % Neut # (Auto) 9.01 H (1.56-6.13) K/mm3 Lymph # (Auto) 0.66 L (1.18-3.74) K/mm3 Shelby # (Auto) 1.09 H (0.24-0.36) K/mm3 Eos # (Auto) 0.04 (0.04-0.36) K/mm3 Baso # (Auto) 0.01 (0.01-0.08) K/mm3 Manual Slide Review Abnormal smear Sodium 134 L (136-145) mEq/L Potassium 3.7 (3.5-5.1) mEq/L Chloride 98 (98-107) mEq/L Carbon Dioxide 29 (21-32) mEq/L Anion Gap 10.7 (5-15) BUN 31 H (7-18) mg/dL Creatinine 0.9 (0.55-1.02) mg/dL Est Cr Clr Drug Dosing 33.52 mL/min Estimated GFR (MDRD) 59 (>60) mL/min BUN/Creatinine Ratio 34.4 H (14-18) Glucose 105 (83-115) mg/dL POC Glucose 98 (83-110) mg/dL Calcium 8.8 (8.5-10.1) mg/dL Magnesium 2.0 (1.8-2.4) mg/dl C-Reactive Protein 25.1 H* (<1.0) mg/dL 12/15/18 Range/Units 06:41 WBC (3.98-10.04) K/mm3 RBC (3.98-5.22) M/mm3 Hgb (11.2-15.7) gm/L Hct (34.1-44.9) % MCV (79.4-94.8) fl MCH (25.6-32.2) pg MCHC (32.2-35.5) g/dl RDW Std Deviation (36.4-46.3) fL Plt Count (182-369) K/mm3 MPV (9.4-12.3) fl Neut % (Auto) (34.0-71.1) % Lymph % (Auto) (19.3-51.7) % Shelby % (Auto) (4.7-12.5) % Eos % (Auto) (0.7-5.8) Baso % (Auto) (0.1-1.2) % Neut # (Auto) (1.56-6.13) K/mm3 Lymph # (Auto) (1.18-3.74) K/mm3 [place] # (Auto) (0.24-0.36) K/mm3 Eos # (Auto) (0.04-0.36) K/mm3 Baso # (Auto) (0.01-0.08) K/mm3 Manual Slide Review Sodium (136-145) mEq/L Potassium (3.5-5.1) mEq/L Chloride (98-107) mEq/L Carbon Dioxide (21-32) mEq/L Anion Gap (5-15) BUN (7-18) mg/dL Creatinine (0.55-1.02) mg/dL Est Cr Clr Drug Dosing mL/min Estimated GFR (MDRD) (>60) mL/min BUN/Creatinine Ratio (14-18) Glucose (83-115) mg/dL POC Glucose 101 (83-110) mg/dL Calcium (8.5-10.1) mg/dL Magnesium (1.8-2.4) mg/dl C-Reactive Protein (<1.0) mg/dL Med Orders - Current: Current Medications Acetaminophen (Tylenol) 650 mg PO Q4H PRN PRN Reason: Pain (Mild 1-3)/fever Last Admin: 12/13/18 15:41 Dose: 650 mg Amlodipine Besylate (Norvasc) 5 mg PO DAILY [facility] Last Admin: 12/14/18 08:34 Dose: 5 mg Amoxicillin (Amoxil) 1,000 mg PO Q8H [facility] Apixaban (Eliquis) 2.5 mg PO BID [facility] Last Admin: 12/14/18 22:09 Dose: 2.5 mg Bisacodyl (Dulcolax) 10 mg RECTAL BID PRN PRN Reason: Constipation Clarithromycin (Biaxin) 500 mg PO TID [facility] Ezetimibe (Zetia) 10 mg PO DAILY [facility] Last Admin: 12/14/18 08:34 Dose: 10 mg Furosemide (Lasix) 10 mg IVPUSH NOW ONE Stop: 12/15/18 09:01 Levothyroxine Sodium (Levothyroxine) 112 mcg PO ACBREAKFAST [facility] Last Admin: 12/15/18 05:07 Dose: 112 mcg Lisinopril (Prinivil) 10 mg PO DAILY [facility] Metformin HCl (Glucophage) 500 mg PO BIDMEALS [facility] Metoprolol Succinate (Toprol Xl) 100 mg PO DAILY [facility] Last Admin: 12/14/18 08:34 Dose: 100 mg Metoprolol Tartrate (Lopressor) 5 mg IVPUSH Q4H PRN PRN Reason: Tachycardia Last Admin: 12/12/18 19:20 Dose: 5 mg Pantoprazole Sodium (Protonix) 40 mg PO BIDAC [facility] Last Admin: 12/15/18 05:07 Dose: 40 mg Potassium Chloride (Klor-Con M20) 40 meq PO DAILY [facility] Last Admin: 12/14/18 09:34 Dose: 40 meq Simvastatin (Zocor) 10 mg PO BEDTIME [facility] Last Admin: 12/14/18 22:09 Dose: 10 mg Discontinued Medications Amoxicillin (Amoxil) 1,000 mg PO Q8H [facility] Last Admin: 12/13/18 13:29 Dose: 1,000 mg Amoxicillin (Amoxil) 500 mg PO Q8H [facility] Amoxicillin (Amoxil) 500 mg PO Q12HR [facility] Last Admin: 12/14/18 08:35 Dose: Not Given Aspirin (Aspirin) 324 mg PO ONETIME ONE Stop: 12/10/18 07:48 Last Admin: 12/10/18 09:47 Dose: 324 mg Clarithromycin (Biaxin) 500 mg PO TID [facility] Last Admin: 12/13/18 16:53 Dose: Not Given Clarithromycin (Biaxin) 250 mg PO Q8H [facility] Last Admin: 12/13/18 17:04 Dose: Not Given Clarithromycin (Biaxin) 250 mg PO Q12H [facility] Last Admin: 12/14/18 05:50 Dose: 250 mg Al Hydroxide/Mg Hydroxide 30 (ml/ Lidocaine HCl 15 ml) 0 ml PO ONETIME ONE Stop: 12/10/18 16:43 Last Admin: 12/10/18 17:43 Dose: 45 ml Dextrose/Water (Dextrose 50% In Water) 50 ml IVPUSH ASDIRECTED ONE Stop: 12/13/18 22:16 Last Admin: 12/13/18 22:29 Dose: 50 ml Furosemide (Lasix) 20 mg IVPUSH ONETIME ONE Stop: 12/10/18 16:57 Last Admin: 12/10/18 17:45 Dose: 20 mg Furosemide (Lasix) 20 mg PO DAILY [facility] Last Admin: 12/11/18 12:43 Dose: 20 mg Furosemide (Lasix) 40 mg PO DAILY [facility] Last Admin: 12/13/18 08:00 Dose: Not Given Furosemide (Lasix) 10 mg IVPUSH NOW ONE Stop: 12/14/18 19:38 Last Admin: 12/14/18 22:09 Dose: 10 mg Glipizide (Glucotrol Xl) 5 mg PO DAILY [facility] Stop: 12/11/18 21:01 Last Admin: 12/11/18 21:21 Dose: 5 mg Glipizide (Glucotrol Xl) 2.5 mg PO BIDMEALS [facility] Last Admin: 12/12/18 06:55 Dose: 2.5 mg Glipizide (Glucotrol Xl) 5 mg PO BIDMEALS [facility] Last Admin: 12/13/18 06:33 Dose: 5 mg Glipizide (Glucotrol Xl) 2.5 mg PO BIDMEALS [facility] Last Admin: 12/13/18 17:28 Dose: Not Given Hydrochlorothiazide (Hydrochlorothiazide) 12.5 mg PO BIDDIURETIC [facility] Last Admin: 12/13/18 06:33 Dose: 12.5 mg Hydrochlorothiazide (Hydrochlorothiazide) 12.5 mg PO BEDTIME [facility] Stop: 12/11/18 21:01 Last Admin: 12/11/18 21:21 Dose: 12.5 mg Hydrochlorothiazide (Hydrochlorothiazide) 12.5 mg PO DAILY [facility] Last Admin: 12/13/18 08:31 Dose: 12.5 mg Hydrochlorothiazide (Hydrochlorothiazide) 12.5 mg PO BEDTIME [facility] Magnesium Sulfate 2 gm/ Premix 50 mls @ 25 mls/hr IV ONETIME ONE Stop: 12/11/18 16:18 Last Admin: 12/11/18 15:23 Dose: 25 mls/hr Sodium Chloride (Normal Saline) 1,000 mls @ 25 mls/hr IV ASDIRECTED [facility] Last Admin: 12/12/18 14:33 Dose: 25 mls/hr Sodium Chloride (Normal Saline) 250 mls @ 250 mls/hr IV BOLUS ONE Stop: 12/12/18 21:39 Last Admin: 12/12/18 20:45 Dose: 250 mls/hr Sodium Chloride (Normal Saline) 1,000 mls @ 50 mls/hr IV ASDIRECTED [facility] Last Infusion: 12/13/18 11:44 Dose: 15 mls/hr Sodium Chloride (Normal Saline) 1,000 mls @ 15 mls/hr IV ASDIRECTED [facility] Last Infusion: 12/13/18 16:54 Dose: 50 mls/hr Sodium Chloride (Normal Saline) 1,000 mls @ 50 mls/hr IV ASDIRECTED [facility] Sodium Chloride (Normal Saline) 250 mls @ 999 mls/hr IV .BOLUS ONE Stop: 12/14/18 00:15 Last Admin: 12/14/18 00:32 Dose: 999 mls/hr Sodium Chloride (Normal Saline) 1,000 mls @ 25 mls/hr IV ASDIRECTED [facility] Last Admin: 12/14/18 08:41 Dose: 25 mls/hr Insulin Human Lispro (Humalog) 0 unit SUBCUT QIDACANDBED [facility]; Protocol Last Admin: 12/14/18 11:20 Dose: Not Given Lactulose (Cephulac) 20 gm PO TID [facility] Stop: 12/13/18 09:01 Last Admin: 12/13/18 07:59 Dose: Not Given Lisinopril (Prinivil) 10 mg PO DAILY [facility] Last Admin: 12/12/18 09:33 Dose: 10 mg Lisinopril (Prinivil) 10 mg PO DAILY [facility] Magnesium Sulfate (Pharmacy To Dose - Magnesium Replacement) 1 dose .XX ASDIRECTED [facility] Metformin HCl (Glucophage) 500 mg PO BIDMEALS [facility] Last Admin: 12/12/18 06:55 Dose: 500 mg Metformin HCl (Glucophage) 500 mg PO BIDMEALS [facility] Metoclopramide HCl (Reglan) 5 mg IVPUSH ONETIME ONE Stop: 12/10/18 09:00 Last Admin: 12/10/18 09:02 Dose: 5 mg Metoprolol Succinate (Toprol Xl) 50 mg PO DAILY [facility] Last Admin: 12/13/18 07:55 Dose: 50 mg Metoprolol Succinate (Toprol Xl) 25 mg PO BEDTIME [facility] Last Admin: 12/12/18 21:56 Dose: 25 mg Metoprolol Succinate (Toprol Xl) 50 mg PO BID [facility] Last Admin: 12/13/18 08:00 Dose: Not Given Metoprolol Succinate (Toprol Xl) 50 mg PO ONETIME ONE Stop: 12/13/18 21:01 Last Admin: 12/13/18 21:38 Dose: 50 mg Ondansetron HCl (Zofran) 4 mg IVPUSH ONETIME ONE Stop: 12/10/18 08:21 Last Admin: 12/10/18 08:31 Dose: 4 mg Potassium Chloride (Pharmacy To Dose - Potassium Replacement) 1 dose .XX ASDIRECTED [facility] Potassium Chloride (Klor-Con M20) 20 meq PO ONETIME ONE Stop: 12/12/18 12:31 Last Admin: 12/12/18 14:16 Dose: 20 meq Potassium Chloride (Klor-Con M20) 40 meq PO ONETIME ONE Stop: 12/14/18 07:02 Last Admin: 12/14/18 08:35 Dose: 40 meq Regadenoson (Lexiscan) 0.4 mg IVPUSH ONETIME ONE Stop: 12/11/18 06:56 Last Admin: 12/11/18 07:44 Dose: 0.4 mg - Exam Quality Assessment: Supplemental Oxygen General: Alert, Oriented, Cooperative HEENT: Pupils Equal, Pupils Reactive, EOMI, Mucous Membr. Moist/[place] Neck: Supple Lungs: Normal Respiratory Effort, Crackles Cardiovascular: Irregular Rhythm GI/Abdominal Exam: Normal Bowel Sounds, Soft, Non-Tender, No Organomegaly, No Distention, No Abnormal Bruit (Female) Exam: Deferred Back Exam: Normal Inspection, Decreased Range of Motion Extremities: Normal Inspection, Normal Range of Motion, Non-Tender, No Pedal Edema, Normal Capillary Refill Peripheral Pulses: 2+: Posterior Tibial (L), Posterior Tibial (R), Dorsalis Pedis (L), Dorsalis Pedis (R) Skin: Warm, Dry, Intact Neurological: No New Focal Deficit Psy/Mental Status: Alert, Normal Affect, Normal Mood - Problem List Review Problem List Initiated/Reviewed/Updated: Yes - My Orders Last 24 Hours: My Active Orders 12/14/18 09:00 Metoprolol Succinate [Toprol XL] 100 mg PO DAILY 12/14/18 13:16 Communication Order [RC] ROUTINE 12/14/18 15:39 Consult to Dietary [Consult to Roentgenologist] [CONS] Routine 12/15/18 07:15 Amoxicillin [Amoxil] 1,000 mg PO Q8H Clarithromycin [Biaxin] 500 mg PO TID 12/15/18 09:00 Furosemide [Lasix] 10 mg IVPUSH NOW ONE 12/16/18 05:11 BMP [BASIC METABOLIC PANEL,BMP] [CHEM] AM CRP [C-REACTIVE PROTEIN] [CHEM] AM 12/17/18 05:11 BMP [BASIC METABOLIC PANEL,BMP] [CHEM] AM CRP [C-REACTIVE PROTEIN] [CHEM] AM 12/17/18 09:00 Lisinopril [Prinivil] 10 mg PO DAILY metFORMIN [Glucophage] 500 mg PO BIDMEALS - Plan Plan:: Assessment: 88-year-old female with type 2 diabetes with new onset atrial fibrillation * Congestive Heart Failure- mild exacerbation; BNP 1260--> 4316; on Lasix 40 mg po daily and Monopril 20mg po daily-was held fort eh past 2 days ; 2D echo shows EF of 65-70%, No RWMA, Moderate MVR, Right Ventricular Systolic Pressure is Moderately elevated at 50.5 mmHg (Pulmonary HTN); she continues to improve; resumed low dose lasix last night * Atrial Fibrillation- new onset; HR is controlled; Metoprolol Succinate at 100 mg po daily; NEDRA-VAsc Score of 6 with a HAS BLED Score of 3; she is currently on Eliquis 2.5 mg po BID for stroke prophylaxis * Mild Thrombocytopenia - platelet of 109 and 107; now 97; no active bleeding or melenic stools * Diabetes Mellitus 2 - w/ Hypoglycemia due to reduced renal function; found out patient is not eating adequately and if she does only tiny amounts and she likes to order orange juice * Leukocytosis - 2/2 H. Pylori infection; WBC of 18-->20K-->15K-->13.67K--> now 10.8; CRP is 34-->43-->31.7 this morning; she is on oral antibiotic * Acute Kidney Injury- 2/2 diuretics use; ACEI/Metformin and diuretics have been held since yesterday; discontinue IV fluids * H. Pylori infection- on triple therapy regime with amoxicillin/clarithromycin and PPI. She may need endoscopy outpatient; family unsure of PUD hx in the past ; renal function has improved so we will resume antibiotics * S/p Hypokalemia- K of 3.1-->3.2 2/2 GI loss; we will replete and monitor * Hypoxemia- she is now on 1L NC; she has pulmonary hypertension, Improved * Generalized Weakness 2/2 acute illness- for Chest Pain, Acute Heart Failure, Atrial Fibrillation, CANDICE with resultant Hypoglycemia, Hyperglycemia, Constipation with Resultant Diarrhea, H. Pylori Infection- PT/OT now recommends SNF placement * Class II Obesity- dietary consult for weight management Resolved: * S/p Constipation - has had 4-5 bowel movements after receiving lactulose and bisacodyl bowel prep * S/p Chest Pain r/o ACS- negative serial troponin; EKG shows no acute ischemic changes; lipid panel-wnl; Nuclear stress test report read as suspicious for previous infarct within the apex and adjacent septum, nothing is seen to indicate reversible ischemia Plan: * She looks way much better this AM. Had a large bowel movement this morning. Her abdominal pain resolves with bowel movement. * She is now off maintenance fluids * Okay to have small dose of regular soda but she would ambulates down the beard as a trade off * Daily CBC, CMP, mag, and BNP in the morning * Stroke/VTE prophylaxis with Eliquis * CODE STATUS: DNR/DNI * Encouraged to ambulate as tolerated * Prognosis is good * LOS > 96 hrs due SNF placement Family updated on morning labs, clinical progress, treatment and discharge care plan
[2018-12-15] MEDS: Amoxicillin 500 MG Cap PO SCH ×3 (08:21→22:19)
[2018-12-15] MEDS: Metoprolol Succinate 50 MG Tab.ER PO SCH (08:29)
[2018-12-15] MEDS: amLODIPine 5 MG Tab PO SCH (08:30)
[2018-12-15] MEDS: Potassium Chloride 20 MEQ Tab.ER PO SCH (08:30)
[2018-12-15] MEDS: Ezetimibe 10 MG Tab PO SCH (08:30)
[2018-12-15] MEDS: Apixaban 2.5 MG Tab PO SCH ×2 (08:31→20:22)
[2018-12-15] MEDS ORDERED: Furosemide 20 MG/2 ML VIAL IVPUSH ONE (09:00)
[2018-12-15] MEDS ORDERED: metFORMIN 500 MG Tab PO SCH (09:00)
[2018-12-15] MEDS ORDERED: Lisinopril 10 MG Tab PO SCH (09:00)
[2018-12-15] MEDS ORDERED: Albuterol/Ipratropium 3.0-0.5 MG/3 ML Neb Soln NEB PRN (09:31)
[2018-12-15] MEDS ORDERED: Furosemide 40 MG/4 ML VIAL IVPUSH ONE (20:00)
[2018-12-15] MEDS: Simvastatin 10 MG Tab PO SCH (20:22)
[2018-12-16] MEDS: Amoxicillin 500 MG Cap PO SCH ×3 (06:41→23:29)
[2018-12-16] MEDS: Pantoprazole 40 MG Tab.CR PO SCH ×2 (06:41→16:52)
[2018-12-16] MEDS: Levothyroxine 112 MCG Tab PO SCH (06:42)
[2018-12-16] MEDS ORDERED: Furosemide 20 MG/2 ML VIAL IVPUSH ONE (07:21)
--- NOTE | 2018-12-16 07:22 | PCM.PN ---
- General Info Date of Service: 12/16/18 Admission Dx/Problem (Free Text): Admission Diagnosis/Problem Admission Diagnosis/Problem Atrial fibrillation Subjective Update: Follow up Functional Status: Reports: Pain Controlled, Tolerating Diet, Ambulating, Urinating. Denies: New Symptoms - Review of Systems General: Reports: Malaise. Denies: Fever, Weakness, Fatigue, Chills HEENT: Reports: No Symptoms Pulmonary: Denies: Shortness of Breath, Cough, Sputum Cardiovascular: Denies: Chest Pain, Palpitations, Dyspnea on Exertion, Lightheadedness Gastrointestinal: Denies: Abdominal Pain, Decreased Appetite, Nausea, Vomiting Genitourinary: Reports: No Symptoms Musculoskeletal: Reports: No Symptoms Skin: Reports: No Symptoms Neurological: Denies: Confusion, Difficulty Walking, Weakness, Gait Disturbance Psychiatric: Denies: Depression, Anxiety, Agitation, Hallucinations Systems Review Comment:: No overnight or acute issues. Afebrile and w/o leukocytosis. She reports no abdominal pain. Her labs were fairly unremarkable. She non enthusiastic with beside activities. - Patient Data Vitals - Most Recent: Last Vital Signs Temp 37.6 C 12/15/18 20:00 Pulse 93 12/15/18 20:00 Resp 22 H 12/15/18 20:00 BP 104/89 12/15/18 20:00 Pulse Ox 95 12/15/18 20:00 Weight - Most Recent: 92.17 kg I&O - Last 24 Hours: Intake & Output 12/15/18 12/16/18 12/16/18 22:59 06:59 14:59 Intake Total 720 Balance 720 Lab Results Last 24 Hours: Laboratory Results - last 24 hr 12/15/18 12/15/18 12/15/18 Range/Units 11:30 17:24 21:24 Sodium (136-145) mEq/L Potassium (3.5-5.1) mEq/L Chloride (98-107) mEq/L Carbon Dioxide (21-32) mEq/L Anion Gap (5-15) BUN (7-18) mg/dL Creatinine (0.55-1.02) mg/dL Est Cr Clr Drug Dosing mL/min Estimated GFR (MDRD) (>60) mL/min BUN/Creatinine Ratio (14-18) Glucose (83-115) mg/dL POC Glucose 135 H 141 H 137 H (83-110) mg/dL Calcium (8.5-10.1) mg/dL C-Reactive Protein (<1.0) mg/dL 12/16/18 12/16/18 Range/Units 05:21 06:40 Sodium 135 L (136-145) mEq/L Potassium 4.1 (3.5-5.1) mEq/L Chloride 97 L (98-107) mEq/L Carbon Dioxide 29 (21-32) mEq/L Anion Gap 13.1 (5-15) BUN 24 H (7-18) mg/dL Creatinine 0.8 (0.55-1.02) mg/dL Est Cr Clr Drug Dosing 37.71 mL/min Estimated GFR (MDRD) > 60 (>60) mL/min BUN/Creatinine Ratio 30.0 H (14-18) Glucose 132 H (83-115) mg/dL POC Glucose 129 H (83-110) mg/dL Calcium 9.1 (8.5-10.1) mg/dL C-Reactive Protein 20.7 H* (<1.0) mg/dL Med Orders - Current: Current Medications Acetaminophen (Tylenol) 650 mg PO Q4H PRN PRN Reason: Pain (Mild 1-3)/fever Last Admin: 12/13/18 15:41 Dose: 650 mg Albuterol/Ipratropium (Duoneb 3.0-0.5 Mg/3 Ml) 3 ml NEB Q4HRRT PRN PRN Reason: Wheezing Last Admin: 12/15/18 10:05 Dose: 3 ml Amlodipine Besylate (Norvasc) 5 mg PO DAILY [facility] Last Admin: 12/15/18 08:30 Dose: 5 mg Amoxicillin (Amoxil) 1,000 mg PO Q8H [facility] Last Admin: 12/16/18 06:41 Dose: 1,000 mg Apixaban (Eliquis) 2.5 mg PO BID [facility] Last Admin: 12/15/18 20:22 Dose: 2.5 mg Bisacodyl (Dulcolax) 10 mg RECTAL BID PRN PRN Reason: Constipation Clarithromycin (Biaxin) 500 mg PO TID [facility] Last Admin: 12/15/18 20:22 Dose: 500 mg Ezetimibe (Zetia) 10 mg PO DAILY [facility] Last Admin: 12/15/18 08:30 Dose: 10 mg Furosemide (Lasix) 10 mg IVPUSH NOW ONE Stop: 12/16/18 07:22 Levothyroxine Sodium (Levothyroxine) 112 mcg PO ACBREAKFAST [facility] Last Admin: 12/16/18 06:42 Dose: 112 mcg Lisinopril (Prinivil) 10 mg PO DAILY [facility] Metformin HCl (Glucophage) 500 mg PO BIDMEALS [facility] Metoprolol Succinate (Toprol Xl) 100 mg PO DAILY [facility] Last Admin: 12/15/18 08:29 Dose: 100 mg Metoprolol Tartrate (Lopressor) 5 mg IVPUSH Q4H PRN PRN Reason: Tachycardia Last Admin: 12/12/18 19:20 Dose: 5 mg Pantoprazole Sodium (Protonix) 40 mg PO BIDAC [facility] Last Admin: 12/16/18 06:41 Dose: 40 mg Potassium Chloride (Klor-Con M20) 40 meq PO DAILY [facility] Last Admin: 12/15/18 08:30 Dose: 40 meq Simvastatin (Zocor) 10 mg PO BEDTIME [facility] Last Admin: 12/15/18 20:22 Dose: 10 mg Discontinued Medications Amoxicillin (Amoxil) 1,000 mg PO Q8H [facility] Last Admin: 12/13/18 13:29 Dose: 1,000 mg Amoxicillin (Amoxil) 500 mg PO Q8H [facility] Amoxicillin (Amoxil) 500 mg PO Q12HR [facility] Last Admin: 12/14/18 08:35 Dose: Not Given Aspirin (Aspirin) 324 mg PO ONETIME ONE Stop: 12/10/18 07:48 Last Admin: 12/10/18 09:47 Dose: 324 mg Clarithromycin (Biaxin) 500 mg PO TID [facility] Last Admin: 12/13/18 16:53 Dose: Not Given Clarithromycin (Biaxin) 250 mg PO Q8H [facility] Last Admin: 12/13/18 17:04 Dose: Not Given Clarithromycin (Biaxin) 250 mg PO Q12H [facility] Last Admin: 12/14/18 05:50 Dose: 250 mg Al Hydroxide/Mg Hydroxide 30 (ml/ Lidocaine HCl 15 ml) 0 ml PO ONETIME ONE Stop: 12/10/18 16:43 Last Admin: 12/10/18 17:43 Dose: 45 ml Dextrose/Water (Dextrose 50% In Water) 50 ml IVPUSH ASDIRECTED ONE Stop: 12/13/18 22:16 Last Admin: 12/13/18 22:29 Dose: 50 ml Furosemide (Lasix) 20 mg IVPUSH ONETIME ONE Stop: 12/10/18 16:57 Last Admin: 12/10/18 17:45 Dose: 20 mg Furosemide (Lasix) 20 mg PO DAILY [facility] Last Admin: 12/11/18 12:43 Dose: 20 mg Furosemide (Lasix) 40 mg PO DAILY [facility] Last Admin: 12/13/18 08:00 Dose: Not Given Furosemide (Lasix) 10 mg IVPUSH NOW ONE Stop: 12/14/18 19:38 Last Admin: 12/14/18 22:09 Dose: 10 mg Furosemide (Lasix) 10 mg IVPUSH NOW ONE Stop: 12/15/18 09:01 Last Admin: 12/15/18 08:33 Dose: 10 mg Furosemide (Lasix) 10 mg IVPUSH NOW ONE Stop: 12/15/18 20:01 Last Admin: 12/15/18 20:17 Dose: 10 mg Glipizide (Glucotrol Xl) 5 mg PO DAILY [facility] Stop: 12/11/18 21:01 Last Admin: 12/11/18 21:21 Dose: 5 mg Glipizide (Glucotrol Xl) 2.5 mg PO BIDMEALS [facility] Last Admin: 12/12/18 06:55 Dose: 2.5 mg Glipizide (Glucotrol Xl) 5 mg PO BIDMEALS [facility] Last Admin: 12/13/18 06:33 Dose: 5 mg Glipizide (Glucotrol Xl) 2.5 mg PO BIDMEALS [facility] Last Admin: 12/13/18 17:28 Dose: Not Given Hydrochlorothiazide (Hydrochlorothiazide) 12.5 mg PO BIDDIURETIC [facility] Last Admin: 12/13/18 06:33 Dose: 12.5 mg Hydrochlorothiazide (Hydrochlorothiazide) 12.5 mg PO BEDTIME [facility] Stop: 12/11/18 21:01 Last Admin: 12/11/18 21:21 Dose: 12.5 mg Hydrochlorothiazide (Hydrochlorothiazide) 12.5 mg PO DAILY [facility] Last Admin: 12/13/18 08:31 Dose: 12.5 mg Hydrochlorothiazide (Hydrochlorothiazide) 12.5 mg PO BEDTIME [facility] Magnesium Sulfate 2 gm/ Premix 50 mls @ 25 mls/hr IV ONETIME ONE Stop: 12/11/18 16:18 Last Admin: 12/11/18 15:23 Dose: 25 mls/hr Sodium Chloride (Normal Saline) 1,000 mls @ 25 mls/hr IV ASDIRECTED [facility] Last Admin: 12/12/18 14:33 Dose: 25 mls/hr Sodium Chloride (Normal Saline) 250 mls @ 250 mls/hr IV BOLUS ONE Stop: 12/12/18 21:39 Last Admin: 12/12/18 20:45 Dose: 250 mls/hr Sodium Chloride (Normal Saline) 1,000 mls @ 50 mls/hr IV ASDIRECTED [facility] Last Infusion: 12/13/18 11:44 Dose: 15 mls/hr Sodium Chloride (Normal Saline) 1,000 mls @ 15 mls/hr IV ASDIRECTED [facility] Last Infusion: 12/13/18 16:54 Dose: 50 mls/hr Sodium Chloride (Normal Saline) 1,000 mls @ 50 mls/hr IV ASDIRECTED [facility] Sodium Chloride (Normal Saline) 250 mls @ 999 mls/hr IV .BOLUS ONE Stop: 12/14/18 00:15 Last Admin: 12/14/18 00:32 Dose: 999 mls/hr Sodium Chloride (Normal Saline) 1,000 mls @ 25 mls/hr IV ASDIRECTED [facility] Last Admin: 12/14/18 08:41 Dose: 25 mls/hr Insulin Human Lispro (Humalog) 0 unit SUBCUT QIDACANDBED [facility]; Protocol Last Admin: 12/14/18 11:20 Dose: Not Given Lactulose (Cephulac) 20 gm PO TID [facility] Stop: 12/13/18 09:01 Last Admin: 12/13/18 07:59 Dose: Not Given Lisinopril (Prinivil) 10 mg PO DAILY [facility] Last Admin: 12/12/18 09:33 Dose: 10 mg Lisinopril (Prinivil) 10 mg PO DAILY [facility] Magnesium Sulfate (Pharmacy To Dose - Magnesium Replacement) 1 dose .XX ASDIRECTED [facility] Metformin HCl (Glucophage) 500 mg PO BIDMEALS [facility] Last Admin: 12/12/18 06:55 Dose: 500 mg Metformin HCl (Glucophage) 500 mg PO BIDMEALS [facility] Metoclopramide HCl (Reglan) 5 mg IVPUSH ONETIME ONE Stop: 12/10/18 09:00 Last Admin: 12/10/18 09:02 Dose: 5 mg Metoprolol Succinate (Toprol Xl) 50 mg PO DAILY [facility] Last Admin: 12/13/18 07:55 Dose: 50 mg Metoprolol Succinate (Toprol Xl) 25 mg PO BEDTIME [facility] Last Admin: 12/12/18 21:56 Dose: 25 mg Metoprolol Succinate (Toprol Xl) 50 mg PO BID [facility] Last Admin: 12/13/18 08:00 Dose: Not Given Metoprolol Succinate (Toprol Xl) 50 mg PO ONETIME ONE Stop: 12/13/18 21:01 Last Admin: 12/13/18 21:38 Dose: 50 mg Ondansetron HCl (Zofran) 4 mg IVPUSH ONETIME ONE Stop: 12/10/18 08:21 Last Admin: 12/10/18 08:31 Dose: 4 mg Potassium Chloride (Pharmacy To Dose - Potassium Replacement) 1 dose .XX ASDIRECTED [facility] Potassium Chloride (Klor-Con M20) 20 meq PO ONETIME ONE Stop: 12/12/18 12:31 Last Admin: 12/12/18 14:16 Dose: 20 meq Potassium Chloride (Klor-Con M20) 40 meq PO ONETIME ONE Stop: 12/14/18 07:02 Last Admin: 12/14/18 08:35 Dose: 40 meq Regadenoson (Lexiscan) 0.4 mg IVPUSH ONETIME ONE Stop: 12/11/18 06:56 Last Admin: 12/11/18 07:44 Dose: 0.4 mg - Exam General: Alert, Cooperative, No Acute Distress HEENT: Pupils Equal, Pupils Reactive, EOMI, Mucous Membr. Moist/[place] Neck: Supple Lungs: Clear to Auscultation, Normal Respiratory Effort Cardiovascular: Irregular Rhythm GI/Abdominal Exam: Normal Bowel Sounds, Soft, Non-Tender, No Organomegaly, No Distention, No Abnormal Bruit (Female) Exam: Deferred Back Exam: Normal Inspection, Decreased Range of Motion Extremities: Normal Inspection, Normal Range of Motion, Non-Tender, No Pedal Edema, Normal Capillary Refill Peripheral Pulses: 2+: Posterior Tibial (L), Posterior Tibial (R), Dorsalis Pedis (L), Dorsalis Pedis (R) Skin: Warm, Dry, Intact, Ecchymosis Neurological: No New Focal Deficit. No: Normal Gait Psy/Mental Status: Alert, Normal Affect, Normal Mood - Problem List Review Problem List Initiated/Reviewed/Updated: Yes - My Orders Last 24 Hours: My Active Orders 12/15/18 07:15 Amoxicillin [Amoxil] 1,000 mg PO Q8H Clarithromycin [Biaxin] 500 mg PO TID 12/15/18 09:31 Albuterol/Ipratropium [DuoNeb 3.0-0.5 MG/3 ML] 3 ml NEB Q4HRRT PRN 12/15/18 09:32 RT Aerosol Therapy [RC] ASDIRECTED 12/16/18 07:21 CBC WITH AUTO DIFF [HEME] Routine Furosemide [Lasix] 10 mg IVPUSH NOW ONE 12/17/18 05:11 BMP [BASIC METABOLIC PANEL,BMP] [CHEM] AM CBC WITH AUTO DIFF [HEME] AM CRP [C-REACTIVE PROTEIN] [CHEM] AM 12/17/18 09:00 Lisinopril [Prinivil] 10 mg PO DAILY metFORMIN [Glucophage] 500 mg PO BIDMEALS - Plan Plan:: Assessment: 88-year-old female with type 2 diabetes with new onset atrial fibrillation * Congestive Heart Failure- mild exacerbation; BNP 1260--> 4316; on Lasix 40 mg po daily and Monopril 20mg po daily-was held fort eh past 2 days ; 2D echo shows EF of 65-70%, No RWMA, Moderate MVR, Right Ventricular Systolic Pressure is Moderately elevated at 50.5 mmHg (Pulmonary HTN); she continues to improve; on lasix * Atrial Fibrillation- new onset; HR is controlled; Metoprolol Succinate at 100 mg po daily; NEDRA-VAsc Score of 6 with a HAS BLED Score of 3; she is currently on Eliquis 2.5 mg po BID for stroke prophylaxis * Mild Thrombocytopenia - platelet of 109 and 107; now 114; no active bleeding or melenic stools * H. Pylori infection- on triple therapy regime with amoxicillin/clarithromycin and PPI. She may need endoscopy outpatient; family unsure of PUD hx in the past ; continue antibiotics regimen * Hypoxemia- she is now on 1L NC; she has pulmonary hypertension, Stable * Generalized Weakness 2/2 acute illness- for Chest Pain, Acute Heart Failure, Atrial Fibrillation, CANDICE with resultant Hypoglycemia, Hyperglycemia, Constipation with Resultant Diarrhea, H. Pylori Infection- PT/OT now recommends SNF placement * Class II Obesity- dietary consult for weight management Resolved: * S/p Constipation - has had 4-5 bowel movements after receiving lactulose and bisacodyl bowel prep * S/p Chest Pain r/o ACS- negative serial troponin; EKG shows no acute ischemic changes; lipid panel-wnl; Nuclear stress test report read as suspicious for previous infarct within the apex and adjacent septum, nothing is seen to indicate reversible ischemia * S/p Leukocytosis - 2/2 H. Pylori infection; WBC of 18-->20K-->15K-->13.67K--> 8.09; CRP is 34-->43-->31.7-->20.7 this morning; she is on oral antibiotic * S/p Acute Kidney Injury- 2/2 diuretics use; ACEI/Metformin and diuretics have been held since yesterday; discontinue IV fluids * S/p Hypokalemia- K of 3.1-->3.2 2/2 GI loss; we will replete and monitor Plan: * She is essentially the same. She is clinically and hemodynamically stable * Daily CBC, CMP, mag, and BNP in the morning * Stroke/VTE prophylaxis with Eliquis * CODE STATUS: DNR/DNI * Encouraged to ambulate as tolerated * Discharge pending placement to SNF/Rehab Family updated on morning labs, clinical progress, treatment and discharge care plan
[2018-12-16] MEDS: Metoprolol Succinate 50 MG Tab.ER PO SCH (08:30)
[2018-12-16] MEDS: Potassium Chloride 20 MEQ Tab.ER PO SCH (08:30)
[2018-12-16] MEDS: Ezetimibe 10 MG Tab PO SCH (08:32)
[2018-12-16] MEDS: amLODIPine 5 MG Tab PO SCH (08:33)
[2018-12-16] MEDS: Apixaban 2.5 MG Tab PO SCH ×2 (08:33→21:26)
[2018-12-16] MEDS: Simvastatin 10 MG Tab PO SCH (21:26)
[2018-12-17] MEDS: Amoxicillin 500 MG Cap PO SCH (06:29)
[2018-12-17] MEDS: Pantoprazole 40 MG Tab.CR PO SCH (06:29)
[2018-12-17] MEDS: Levothyroxine 112 MCG Tab PO SCH (06:29)
[2018-12-17] MEDS ORDERED: metFORMIN 500 MG Tab PO SCH (09:00)
[2018-12-17] MEDS ORDERED: Lisinopril 10 MG Tab PO SCH (09:00)
[2018-12-17] MEDS: amLODIPine 5 MG Tab PO SCH (09:05)
[2018-12-17] MEDS: Ezetimibe 10 MG Tab PO SCH (09:06)
[2018-12-17] MEDS: Metoprolol Succinate 50 MG Tab.ER PO SCH (09:06)
[2018-12-17] MEDS: Apixaban 2.5 MG Tab PO SCH (09:07)
[2018-12-17] MEDS: Potassium Chloride 20 MEQ Tab.ER PO SCH (09:07)
--- NOTE | 2018-12-17 12:36 | PCM.DCSUM1 ---
Discharge Summary - Hospital Course Diagnosis: Stroke: No Modified Jamin Scale: No Symptoms at All Modified Jamin Scale Score: 0 - Discharge Data Discharge Date: 12/17/18 (Admit date: 12/10/18) Discharge Disposition: DC/Tfer to SNF 03 Condition: Good - Discharge Diagnosis/Problem(s) (1) Atrial fibrillation SNOMED Code(s): 13183869 ICD Code: I48.91 - UNSPECIFIED ATRIAL FIBRILLATION Status: Acute Priority : High Current Visit: Yes Qualifiers: Atrial fibrillation type: unspecified Qualified Code(s): I48.91 - Unspecified atrial fibrillation (2) Chest pain SNOMED Code(s): 23052195 ICD Code: R07.9 - CHEST PAIN, UNSPECIFIED Status: Resolved Priority: High Current Visit: Yes Qualifiers: Chest pain type: unspecified Qualified Code(s): R07.9 - Chest pain, unspecified (3) Epigastric abdominal pain SNOMED Code(s): 99797655 ICD Code: R10.13 - EPIGASTRIC PAIN Status: Acute Priority: High Current Visit: Yes (4) Heart failure SNOMED Code(s): 34334937 ICD Code: I50.9 - HEART FAILURE, UNSPECIFIED Status: Chronic Priority: Medium Current Visit: Yes Qualifiers: Heart failure type: unspecified Heart failure chronicity: unspecified Qualified Code(s): I50.9 - Heart failure, unspecified - Patient Summary/Data Consults: Consultations 12/11/18 14:17 PT Evaluation and Treatment [CONS] Routine 12/11/18 14:18 OT Evaluation and Treatment [CONS] Routine 12/14/18 15:39 Consult to Dietary [Consult to Steam Setter] [CONS] Routine Labs Pending at D/C: None Recommended Follow-up Testing/Procedures: Follow-up with primary care provider within one week of discharge. Consider follow-up with general surgery after completion of H. Pylori treatment. Hospital Course: Kellen was admitted with epigastric pain and new onset A. fib with a left bundle branch block. Unknown when the A. fib or left bundle branch block first began. She does have a history of heart failure and admits that she only takes her Lasix when it's convenient for her. Stress test was obtained and was nondiagnostic on the Lexiscan portion. Nuclear medicine portion showed findings are suspicious for a previous infarct within the apex and adjacent septum but nothing is seen to indicate that this is reversible ischemia. Repeat chest x-ray was obtained and showed nothing acute. Troponins did remain negative. A1C was 7.3. She did have an echocardiogram obtained on 12/11/2018. This was interpreted as "1. The study was performed with the patient in atrial fibrillation/flutter. 2. Left ventricular internal cavity size is normal. 3. Normal left ventricular systolic function. 4. Left ventricular ejection fraction, by visual estimation, is 65-70%. 5. No regional wall motion abnormalities. 6. Mild septal left ventricular hypertrophy. 7. Severely dilated left atrium. 8. Moderate mitral valve regurgitation. 9. Mild tricuspid valve regurgitation. 10. The inferior vena cava is abnormal. 11. Inferior vena caval is dilated with respiratory size variation greater than 50% and is compatible with normal right atrial pressure. 12. The right ventricular systolic pressure is moderately elevated at 50.5 mmHg." Lipid panel was obtained and was normal. Electrolytes were supplemented. We did attempt to diurese her however this did lead to some kidney injury, which did resolve. She did test positive for H. pylori antigen. She did remain in A. fib and was started on Eliquis. Her rate did remain controlled on her home metoprolol. She did work with PT and OT and ultimately the decided she should go for a sniff rehabilitation stay at [facility]. She did have somewhat of a lack of motivation while here. Dr. Palma did instruct her to take 2 of her Lasix pills if she does notice a sudden onset of shortness of breath or increased edema. Parameters were placed on her blood pressure medications and she was instructed to check her vital signs daily, including her weight. She should write all this down in a journal and bring it with all medical appointments. She was placed on a 2.5 L fluid restriction as well as a sodium restriction. She did see our hair colorist. She may benefit from endoscopy after completion of her H. pylori treatment. She was instructed to follow-up with her primary care provider within one week of discharge. She was instructed to return to the emergency room or contact her primary care provider should symptoms return or worsen. She was discharged on 1000 mg by mouth 3 times a day amoxicillin, 500 mg by mouth 3 times a day clarithromycin, and 40 mg by mouth daily Protonix. She was also started on 2.5 mg by mouth twice a day Eliquis and a 250 mg by mouth 3 times a day probiotic. All other home medications were continued. She was discharged today. - Patient Instructions Diet: Heart Healthy Diet, Usual Diet as Tolerated, Low Sodium, Diabetic Diet, Weight Loss Diet Fluid Restriction: 2.5L Activity: As Tolerated Driving: Do Not Drive Showering/Bathing: May Shower Notify Provider of: Fever, Increased Pain, Swelling and Redness, Nausea and/or Vomiting Other/Special Instructions: - Please take all new medications as directed. - Resume routine home medications and activity as tolerated. - Take 2 tabs of water pill (lasix) for sudden onset of shortness of breath or increased edema then call your family doctor for further instructions. - Check vitals and follow parameters before you take blood pressure medications. - Follow salt and fluid restrictions per Steam Setter's recommendations. - Consider endoscopy after completion of H. Pylori treatment. - Call or follow up with your doctor for any concerns or issues after discharge. - Follow up with your doctor in 1 week. - Come back or seek immediate care should your symptoms persist or get worse - Discharge Plan *PRESCRIPTION DRUG MONITORING PROGRAM REVIEWED*: Not Applicable *COPY OF PRESCRIPTION DRUG MONITORING REPORT IN PATIENT BRUNILDA: Not Applicable Prescriptions/Med Rec: Amoxicillin 1,000 mg PO TID #72 tab Apixaban [Eliquis] 2.5 mg PO BID #60 tablet Clarithromycin [Biaxin] 500 mg PO TID #36 tablet Pantoprazole [ProTONIX] 40 mg PO DAILY #12 tab.cr Saccharomyces Boulardii [Probiotic] 250 mg PO TID #36 capsule Home Medications: Home Meds Ezetimibe 10 mg PO DAILY 08/25/18 [History] Fosinopril [Monopril] 20 mg PO DAILY 08/25/18 [History] Levothyroxine 112 mcg PO DAILY 08/25/18 [History] Nystatin [Nystatin Crm] 1 applic TOP BID PRN 08/25/18 [History] Simvastatin 10 mg PO BEDTIME 08/25/18 [History] metFORMIN [Glucophage] 500 mg PO BID 08/25/18 [History] Amoxicillin 1,000 mg PO TID #72 tab 12/17/18 [Rx] Apixaban [Eliquis] 2.5 mg PO BID #60 tablet 12/17/18 [Rx] Clarithromycin [Biaxin] 500 mg PO TID #36 tablet 12/17/18 [Rx] Furosemide [Lasix] 20 mg PO DAILY PRN #0 12/17/18 [Rx] Metoprolol Succinate [Toprol Xl] 100 mg PO DAILY #60 12/17/18 [Rx] Pantoprazole [ProTONIX] 40 mg PO DAILY #12 tab.cr 12/17/18 [Rx] Saccharomyces Boulardii [Probiotic] 250 mg PO TID #36 capsule 12/17/18 [Rx] amLODIPine [Norvasc] 5 mg PO DAILY #0 12/17/18 [Rx] Oxygen Therapy Mode: Nasal Cannula Oxygen Flow Rate (L/min): 1 Maintain SpO2% greater than: 92 Patient Handouts: Acute Kidney Injury, Adult, Helicobacter Pylori Infection, Hypokalemia, Constipation, Adult, Uhwm-[id number], Leukocytosis, Nonspecific Chest Pain, Elmj-wj-Xhed, Heart Failure, Aopj-ju-Nwqh, Apixaban oral tablets, Atrial Fibrillation, Ygti-dn-Jpyy, Hypoglycemia, Gtst-vk-[id number] Referrals: Ramon Aaron MD [Primary Care Provider] - 12/24/18 1:15 pm - Discharge Summary/Plan Comment DC Time >30 min.: Yes (45 mins ) - General Info Date of Service: 12/17/18 Admission Dx/Problem (Free Text: Admission Diagnosis/Problem Admission Diagnosis/Problem Atrial fibrillation Functional Status: Reports: Pain Controlled, Tolerating Diet, Ambulating, Urinating. Denies: New Symptoms - Review of Systems General: Reports: Malaise. Denies: Fever, Weakness, Fatigue, Chills HEENT: Reports: No Symptoms. Denies: Headaches, Sore Throat Pulmonary: Reports: No Symptoms. Denies: Shortness of Breath, Pleuritic Chest Pain, Cough, Sputum Cardiovascular: Reports: No Symptoms. Denies: Chest Pain, Palpitations, Dyspnea on Exertion Gastrointestinal: Reports: No Symptoms. Denies: Abdominal Pain, Constipation, Diarrhea, Nausea, Vomiting Genitourinary: Reports: No Symptoms. Denies: Pain Musculoskeletal: Reports: No Symptoms Skin: Reports: No Symptoms. Denies: Cyanosis Neurological: Reports: No Symptoms. Denies: Confusion Psychiatric: Reports: No Symptoms - Patient Data Vitals - Most Recent: Last Vital Signs Temp 98.1 F 12/17/18 10:59 Pulse 87 12/17/18 10:59 Resp 15 12/17/18 10:59 BP 125/68 12/17/18 10:59 Pulse Ox 96 12/17/18 10:59 Weight - Most Recent: 200 lb 4.8 oz I&O - Last 24 hours: Intake & Output 12/16/18 12/17/18 12/17/18 22:59 06:59 14:59 Intake Total 400 200 420 Balance 400 200 420 Lab Results - Last 24 hrs: Laboratory Results - last 24 hr 12/16/18 12/16/18 12/17/18 Range/Units 17:11 21:25 05:10 WBC (3.98-10.04) K/mm3 RBC (3.98-5.22) M/mm3 Hgb (11.2-15.7) gm/L Hct (34.1-44.9) % MCV (79.4-94.8) fl MCH (25.6-32.2) pg MCHC (32.2-35.5) g/dl RDW Std Deviation (36.4-46.3) fL Plt Count (182-369) K/mm3 MPV (9.4-12.3) fl Neut % (Auto) (34.0-71.1) % Lymph % (Auto) (19.3-51.7) % [place] % (Auto) (4.7-12.5) % Eos % (Auto) (0.7-5.8) Baso % (Auto) (0.1-1.2) % Neut # (Auto) (1.56-6.13) K/mm3 Lymph # (Auto) (1.18-3.74) K/mm3 [place] # (Auto) (0.24-0.36) K/mm3 Eos # (Auto) (0.04-0.36) K/mm3 Baso # (Auto) (0.01-0.08) K/mm3 Manual Slide Review Sodium 137 (136-145) mEq/L Potassium 4.2 (3.5-5.1) mEq/L Chloride 100 (98-107) mEq/L Carbon Dioxide 29 (21-32) mEq/L Anion Gap 12.2 (5-15) BUN 22 H (7-18) mg/dL Creatinine 0.9 (0.55-1.02) mg/dL Est Cr Clr Drug Dosing 33.52 mL/min Estimated GFR (MDRD) 59 (>60) mL/min BUN/Creatinine Ratio 24.4 H (14-18) Glucose 156 H (83-115) mg/dL POC Glucose 172 H 167 H (83-110) mg/dL Calcium 9.0 (8.5-10.1) mg/dL C-Reactive Protein 18.3 H* (<1.0) mg/dL 12/17/18 12/17/18 12/17/18 Range/Units 05:10 06:35 11:00 WBC 7.38 (3.98-10.04) K/mm3 RBC 3.89 L (3.98-5.22) M/mm3 Hgb 11.2 (11.2-15.7) gm/L Hct 35.7 (34.1-44.9) % MCV 91.8 (79.4-94.8) fl MCH 28.8 (25.6-32.2) pg MCHC 31.4 L (32.2-35.5) g/dl RDW Std Deviation 45.6 (36.4-46.3) fL Plt Count 160 L (182-369) K/mm3 MPV 11.4 (9.4-12.3) fl Neut % (Auto) 71.1 (34.0-71.1) % Lymph % (Auto) 12.3 L (19.3-51.7) % [place] % (Auto) 11.0 (4.7-12.5) % Eos % (Auto) 1.4 (0.7-5.8) Baso % (Auto) 0.1 (0.1-1.2) % Neut # (Auto) 5.25 (1.56-6.13) K/mm3 Lymph # (Auto) 0.91 L (1.18-3.74) K/mm3 [place] # (Auto) 0.81 H (0.24-0.36) K/mm3 Eos # (Auto) 0.10 (0.04-0.36) K/mm3 Baso # (Auto) 0.01 (0.01-0.08) K/mm3 Manual Slide Review Abnormal smear Sodium (136-145) mEq/L Potassium (3.5-5.1) mEq/L Chloride (98-107) mEq/L Carbon Dioxide (21-32) mEq/L Anion Gap (5-15) BUN (7-18) mg/dL Creatinine (0.55-1.02) mg/dL Est Cr Clr Drug Dosing mL/min Estimated GFR (MDRD) (>60) mL/min BUN/Creatinine Ratio (14-18) Glucose (83-115) mg/dL POC Glucose 150 H 193 H (83-110) mg/dL Calcium (8.5-10.1) mg/dL C-Reactive Protein (<1.0) mg/dL Med Orders - Current: Current Medications Acetaminophen (Tylenol) 650 mg PO Q4H PRN PRN Reason: Pain (Mild 1-3)/fever Last Admin: 12/13/18 15:41 Dose: 650 mg Albuterol/Ipratropium (Duoneb 3.0-0.5 Mg/3 Ml) 3 ml NEB Q4HRRT PRN PRN Reason: Wheezing Last Admin: 12/15/18 10:05 Dose: 3 ml Amlodipine Besylate (Norvasc) 5 mg PO DAILY [facility] Last Admin: 12/17/18 09:05 Dose: 5 mg Amoxicillin (Amoxil) 1,000 mg PO Q8H [facility] Last Admin: 12/17/18 06:29 Dose: 1,000 mg Apixaban (Eliquis) 2.5 mg PO BID [facility] Last Admin: 12/17/18 09:07 Dose: 2.5 mg Bisacodyl (Dulcolax) 10 mg RECTAL BID PRN PRN Reason: Constipation Clarithromycin (Biaxin) 500 mg PO TID [facility] Last Admin: 12/17/18 09:06 Dose: 500 mg Ezetimibe (Zetia) 10 mg PO DAILY [facility] Last Admin: 12/17/18 09:06 Dose: 10 mg Levothyroxine Sodium (Levothyroxine) 112 mcg PO ACBREAKFAST [facility] Last Admin: 12/17/18 06:29 Dose: 112 mcg Lisinopril (Prinivil) 10 mg PO DAILY [facility] Last Admin: 12/17/18 09:07 Dose: 10 mg Metformin HCl (Glucophage) 500 mg PO BIDMEALS [facility] Last Admin: 12/17/18 09:07 Dose: 500 mg Metoprolol Succinate (Toprol Xl) 100 mg PO DAILY [facility] Last Admin: 12/17/18 09:06 Dose: 100 mg Metoprolol Tartrate (Lopressor) 5 mg IVPUSH Q4H PRN PRN Reason: Tachycardia Last Admin: 12/12/18 19:20 Dose: 5 mg Pantoprazole Sodium (Protonix) 40 mg PO BIDAC [facility] Last Admin: 12/17/18 06:29 Dose: 40 mg Potassium Chloride (Klor-Con M20) 40 meq PO DAILY [facility] Last Admin: 12/17/18 09:07 Dose: 40 meq Simvastatin (Zocor) 10 mg PO BEDTIME [facility] Last Admin: 12/16/18 21:26 Dose: 10 mg Discontinued Medications Amoxicillin (Amoxil) 1,000 mg PO Q8H [facility] Last Admin: 12/13/18 13:29 Dose: 1,000 mg Amoxicillin (Amoxil) 500 mg PO Q8H [facility] Amoxicillin (Amoxil) 500 mg PO Q12HR [facility] Last Admin: 12/14/18 08:35 Dose: Not Given Aspirin (Aspirin) 324 mg PO ONETIME ONE Stop: 12/10/18 07:48 Last Admin: 12/10/18 09:47 Dose: 324 mg Clarithromycin (Biaxin) 500 mg PO TID [facility] Last Admin: 12/13/18 16:53 Dose: Not Given Clarithromycin (Biaxin) 250 mg PO Q8H [facility] Last Admin: 12/13/18 17:04 Dose: Not Given Clarithromycin (Biaxin) 250 mg PO Q12H [facility] Last Admin: 12/14/18 05:50 Dose: 250 mg Al Hydroxide/Mg Hydroxide 30 (ml/ Lidocaine HCl 15 ml) 0 ml PO ONETIME ONE Stop: 12/10/18 16:43 Last Admin: 12/10/18 17:43 Dose: 45 ml Dextrose/Water (Dextrose 50% In Water) 50 ml IVPUSH ASDIRECTED ONE Stop: 12/13/18 22:16 Last Admin: 12/13/18 22:29 Dose: 50 ml Furosemide (Lasix) 20 mg IVPUSH ONETIME ONE Stop: 12/10/18 16:57 Last Admin: 12/10/18 17:45 Dose: 20 mg Furosemide (Lasix) 20 mg PO DAILY [facility] Last Admin: 12/11/18 12:43 Dose: 20 mg Furosemide (Lasix) 40 mg PO DAILY [facility] Last Admin: 12/13/18 08:00 Dose: Not Given Furosemide (Lasix) 10 mg IVPUSH NOW ONE Stop: 12/14/18 19:38 Last Admin: 12/14/18 22:09 Dose: 10 mg Furosemide (Lasix) 10 mg IVPUSH NOW ONE Stop: 12/15/18 09:01 Last Admin: 12/15/18 08:33 Dose: 10 mg Furosemide (Lasix) 10 mg IVPUSH NOW ONE Stop: 12/15/18 20:01 Last Admin: 12/15/18 20:17 Dose: 10 mg Furosemide (Lasix) 10 mg IVPUSH NOW ONE Stop: 12/16/18 07:22 Last Admin: 12/16/18 08:29 Dose: 10 mg Glipizide (Glucotrol Xl) 5 mg PO DAILY [facility] Stop: 12/11/18 21:01 Last Admin: 12/11/18 21:21 Dose: 5 mg Glipizide (Glucotrol Xl) 2.5 mg PO BIDMEALS [facility] Last Admin: 12/12/18 06:55 Dose: 2.5 mg Glipizide (Glucotrol Xl) 5 mg PO BIDMEALS [facility] Last Admin: 12/13/18 06:33 Dose: 5 mg Glipizide (Glucotrol Xl) 2.5 mg PO BIDMEALS [facility] Last Admin: 12/13/18 17:28 Dose: Not Given Hydrochlorothiazide (Hydrochlorothiazide) 12.5 mg PO BIDDIURETIC [facility] Last Admin: 12/13/18 06:33 Dose: 12.5 mg Hydrochlorothiazide (Hydrochlorothiazide) 12.5 mg PO BEDTIME [facility] Stop: 12/11/18 21:01 Last Admin: 12/11/18 21:21 Dose: 12.5 mg Hydrochlorothiazide (Hydrochlorothiazide) 12.5 mg PO DAILY [facility] Last Admin: 12/13/18 08:31 Dose: 12.5 mg Hydrochlorothiazide (Hydrochlorothiazide) 12.5 mg PO BEDTIME [facility] Magnesium Sulfate 2 gm/ Premix 50 mls @ 25 mls/hr IV ONETIME ONE Stop: 12/11/18 16:18 Last Admin: 12/11/18 15:23 Dose: 25 mls/hr Sodium Chloride (Normal Saline) 1,000 mls @ 25 mls/hr IV ASDIRECTED [facility] Last Admin: 12/12/18 14:33 Dose: 25 mls/hr Sodium Chloride (Normal Saline) 250 mls @ 250 mls/hr IV BOLUS ONE Stop: 12/12/18 21:39 Last Admin: 12/12/18 20:45 Dose: 250 mls/hr Sodium Chloride (Normal Saline) 1,000 mls @ 50 mls/hr IV ASDIRECTED [facility] Last Infusion: 12/13/18 11:44 Dose: 15 mls/hr Sodium Chloride (Normal Saline) 1,000 mls @ 15 mls/hr IV ASDIRECTED [facility] Last Infusion: 12/13/18 16:54 Dose: 50 mls/hr Sodium Chloride (Normal Saline) 1,000 mls @ 50 mls/hr IV ASDIRECTED [facility] Sodium Chloride (Normal Saline) 250 mls @ 999 mls/hr IV .BOLUS ONE Stop: 12/14/18 00:15 Last Admin: 12/14/18 00:32 Dose: 999 mls/hr Sodium Chloride (Normal Saline) 1,000 mls @ 25 mls/hr IV ASDIRECTED [facility] Last Admin: 12/14/18 08:41 Dose: 25 mls/hr Insulin Human Lispro (Humalog) 0 unit SUBCUT QIDACANDBED [facility]; Protocol Last Admin: 12/14/18 11:20 Dose: Not Given Lactulose (Cephulac) 20 gm PO TID [facility] Stop: 12/13/18 09:01 Last Admin: 12/13/18 07:59 Dose: Not Given Lisinopril (Prinivil) 10 mg PO DAILY [facility] Last Admin: 12/12/18 09:33 Dose: 10 mg Lisinopril (Prinivil) 10 mg PO DAILY [facility] Magnesium Sulfate (Pharmacy To Dose - Magnesium Replacement) 1 dose .XX ASDIRECTED [facility] Metformin HCl (Glucophage) 500 mg PO BIDMEALS [facility] Last Admin: 12/12/18 06:55 Dose: 500 mg Metformin HCl (Glucophage) 500 mg PO BIDMEALS [facility] Metoclopramide HCl (Reglan) 5 mg IVPUSH ONETIME ONE Stop: 12/10/18 09:00 Last Admin: 12/10/18 09:02 Dose: 5 mg Metoprolol Succinate (Toprol Xl) 50 mg PO DAILY [facility] Last Admin: 12/13/18 07:55 Dose: 50 mg Metoprolol Succinate (Toprol Xl) 25 mg PO BEDTIME [facility] Last Admin: 12/12/18 21:56 Dose: 25 mg Metoprolol Succinate (Toprol Xl) 50 mg PO BID [facility] Last Admin: 12/13/18 08:00 Dose: Not Given Metoprolol Succinate (Toprol Xl) 50 mg PO ONETIME ONE Stop: 12/13/18 21:01 Last Admin: 12/13/18 21:38 Dose: 50 mg Ondansetron HCl (Zofran) 4 mg IVPUSH ONETIME ONE Stop: 12/10/18 08:21 Last Admin: 12/10/18 08:31 Dose: 4 mg Potassium Chloride (Pharmacy To Dose - Potassium Replacement) 1 dose .XX ASDIRECTED [facility] Potassium Chloride (Klor-Con M20) 20 meq PO ONETIME ONE Stop: 12/12/18 12:31 Last Admin: 12/12/18 14:16 Dose: 20 meq Potassium Chloride (Klor-Con M20) 40 meq PO ONETIME ONE Stop: 12/14/18 07:02 Last Admin: 12/14/18 08:35 Dose: 40 meq Regadenoson (Lexiscan) 0.4 mg IVPUSH ONETIME ONE Stop: 12/11/18 06:56 Last Admin: 12/11/18 07:44 Dose: 0.4 mg - Exam Quality Assessment: Reports: Supplemental Oxygen, DVT Prophylaxis General: Reports: Alert, Oriented, Cooperative, No Acute Distress HEENT: Reports: Pupils Equal, Pupils Reactive, EOMI, Mucous Membr. Moist/[place] Neck: Reports: Supple, Trachea Midline Lungs: Reports: Normal Respiratory Effort, Decreased Breath Sounds, Wheezing ( Very mild ) Cardiovascular: Reports: Irregular Rhythm GI/Abdominal Exam: Normal Bowel Sounds, Soft, Non-Tender, No Organomegaly, No Distention (Female) Exam: Deferred Rectal (Female) Exam: Deferred Back Exam: Reports: Normal Inspection, Decreased Range of Motion Extremities: Normal Inspection, Normal Range of Motion, Non-Tender, Normal Capillary Refill, Pedal Edema (trace ) Skin: Reports: Warm, Dry, Intact, Ecchymosis (Scattered ) Neurological: Reports: No New Focal Deficit Psy/Mental Status: Reports: Alert, Normal Affect
== END 2018-12-17 13:05 | DRG 309 ==
LOC: JD.ED 07:15 → JD.MS 11:29 → OBSVTOIN 14:39 → JD.MS 15:00
PROVIDERS: ADMIT Family Medicine; ATTEND Family Medicine
DX: I48.91 Unspecified atrial fibrillation (principal); N17.9 Acute kidney failure, unspecified; R11.2 Nausea with vomiting, unspecified; A04.9 Bacterial intestinal infection, unspecified; I50.9 Heart failure, unspecified; I11.0 Hypertensive heart disease with heart failure; E03.9 Hypothyroidism, unspecified; Z66 Do not resuscitate; E11.9 Type 2 diabetes mellitus without complications; E78.00 Pure hypercholesterolemia, unspecified; M19.90 Unspecified osteoarthritis, unspecified site; J45.909 Unspecified asthma, uncomplicated; K59.09 Other constipation; M19.91 Primary osteoarthritis, unspecified site; Z79.890 Hormone replacement therapy; E66.9 Obesity, unspecified; E20.9 Hypoparathyroidism, unspecified; Z96.659 Presence of unspecified artificial knee joint; M10.9 Gout, unspecified; D69.6 Thrombocytopenia, unspecified; I27.20 Pulmonary hypertension, unspecified; K59.00 Constipation, unspecified; E87.6 Hypokalemia; E11.649 Type 2 diabetes mellitus with hypoglycemia without coma; I44.7 Left bundle-branch block, unspecified; Z79.84 Long term (current) use of oral hypoglycemic drugs; Z98.49 Cataract extraction status, unspecified eye; Z79.899 Other long term (current) drug therapy; Z68.36 Body mass index [BMI] 36.0-36.9, adult
CPT/HCPCS: 36415; 71045; 80053; 81001; 83880; 84484 ×2; 85007; 85027; 85610; 85730; 93005; 96374; 96375; 99285; A9270; J2405; J2765; 78452; 78452-26; 80048; 80061; 82962; 83036; 83735; 84443; 85025; 86140; 87338; 93010; 93017; 93306; 94640; 94760; 94761; 94762; 97110-GO; 97110-GP; 97116-GP; 97162-GP; 97165-GO; 97530-GO; 97530-GP; 97535-GO; 99222; 99231; 99232; 99238; A9500; J1815-GY; J1940; J2785; J3475; J3490; J7040; J7060; J7620-GY